=== PATIENT | female | born 1930 | race Caucasian/White ===

== ENCOUNTER 2016-07-25 21:20 | Inpatient (IN) | payer MEDICARE ==
[~2016-07-25] VITALS: Ht 167.6 cm; Wt 82.8 kg
[~2016-07-25 21:20] MED LIST: HYDR-2666 PO
--- NOTE | 2016-07-25 21:59 | PHYS DOC ---
Past Medical History Past Medical History: Hypertension, Hypothyroid, Other Additional Past Medical Histor: graves Past Surgical History: Cholecystectomy, Tonsillectomy, Tubal ligation Additional Past Surgical Histo: vein strip Alcohol Use: None Drug Use: None Adult General Chief Complaint Chief Complaint: MECHANICAL FALL HPI HPI 85-year-old female who states she was sleeping at home when her daughter called and try to get to the phone and slipped and fell hitting her head and landing on her left side in the left shoulder she states she has significant pain in her left shoulder as well as her left hip and pelvis area. Patient has not tried to ambulate since her fall. She is fully alert and oriented this time but has not taken her evening blood pressure medications. She is satting in the mid 80s upon EMS arrival and required 2 L of oxygen. Upon my initial assessment, the patient is in no acute distress but requiring 3 L. She is normally not requiring supplemental oxygen. She states she has history of hypertension but is otherwise healthy. She does not normally require any ambulatory assistance. She does not use a walker or wheelchair. Denies any significant chest pain. She localizes all her pain primarily to the left shoulder made worse with movement. Review of Systems Review of Systems Constitutional: Denies fever or chills [] Eyes: Denies change in visual acuity, redness, or eye pain [] HENT: Denies nasal congestion or sore throat [] Respiratory: Denies cough or shortness of breath [] Cardiovascular: No additional information not addressed in HPI [] GI: Denies abdominal pain, nausea, vomiting, bloody stools or diarrhea [] : Denies dysuria or hematuria [] Musculoskeletal: Denies back pain, has joint pain [] Integument: Denies rash or skin lesions [] Neurologic: Denies headache, focal weakness or sensory changes [] Endocrine: Denies polyuria or polydipsia [] Current Medications Current Medications Current Medications Medications (Trade) Dose Ordered Sig/Valerie Start Time Stop Time Status Last Admin Dose Admin Acetaminophen (Tylenol) 650 mg 1X ONCE 07/25/16 22:00 07/25/16 22:01 DC 07/25/16 22:07 650 MG Allergies Allergies Allergies Coded Allergies Type Severity Reaction Last Updated Verified Penicillins Allergy Intermediate 12/24/15 Yes ibuprofen Allergy Intermediate 12/24/15 Yes Physical Exam Physical Exam Constitutional: Well developed, well nourished, no acute distress, non-toxic appearance. [] HENT: Normocephalic, atraumatic, bilateral external ears normal, oropharynx moist, no oral exudates, nose normal. [] Eyes: PERRLA, EOMI, conjunctiva normal, no discharge. [] Neck: Normal range of motion, no tenderness, supple, no stridor. [] Cardiovascular:Heart rate regular rhythm, no murmur [] Lungs & Thorax: Bilateral breath sounds clear to auscultation, there is no crepitus or deformity of the chest [] Abdomen: Bowel sounds normal, soft, no tenderness, no masses, no pulsatile masses. [] Skin: Warm, dry, no erythema, no rash. [] Back: No tenderness, no CVA tenderness. [] Extremities: There is no obvious deformity or swelling seen in the lower extremities, no cyanosis, no clubbing, ROM intact in left shoulder, no edema. [ ] Neurologic: Alert and oriented X 3, normal motor function, normal sensory function, no focal deficits noted. [] Psychologic: Affect normal, judgement normal, mood normal. [] Current Patient Data Vital Signs Vital Signs Date Time Temp Pulse Resp B/P Pulse Ox O2 Delivery O2 Flow Rate FiO2 07/25/16 23:00 66 156/70 94 Nasal Cannula 2 07/25/16 21:31 97.4 18 97.4 Lab Values Laboratory Tests Test 07/25/16 22:20 07/25/16 22:22 Urine Collection Type Unknown Urine Color Yellow Urine Clarity Clear Urine pH 7.5 Urine Specific [place] 1.015 Urine Protein Negativemg/dL (NEG-TRACE) Urine Glucose (UA) Negativemg/dL (NEG) Urine Ketones (Stick) Negativemg/dL (NEG) Urine Blood Negative (NEG) Urine Nitrite Negative (NEG) Urine Bilirubin Negative (NEG) Urine Urobilinogen Dipstick 0.2mg/dL (0.2 mg/dL) Urine Leukocyte Esterase Small (NEG) Urine RBC 0/HPF (0-2) Urine WBC 5-10/HPF (0-4) Urine Squamous Epithelial Cells Few/LPF Urine Renal Epithelial Cells Occ/LPF Urine Bacteria Few/HPF (0-FEW) Urine Mucus Mod/LPF White Blood Count 7.6x10^3/uL (4.0-11.0) Red Blood Count 4.55x10^6/uL (3.50-5.40) Hemoglobin 13.3g/dL (12.0-15.5) Hematocrit 39.7% (36.0-47.0) Mean Corpuscular Volume 87fL (79-100) Mean Corpuscular Hemoglobin 29pg (25-35) Mean Corpuscular Hemoglobin Concent 34g/dL (31-37) Red Cell Distribution Width 14.7% (11.5-14.5) H Platelet Count 185x10^3/uL (140-400) Neutrophils (%) (Auto) 67% (31-73) Lymphocytes (%) (Auto) 20% (24-48) L Monocytes (%) (Auto) 11% (0-9) H Eosinophils (%) (Auto) 2% (0-3) Basophils (%) (Auto) 0% (0-3) Neutrophils # (Auto) 5.1x10^3uL (1.8-7.7) Lymphocytes # (Auto) 1.5x10^3/uL (1.0-4.8) Monocytes # (Auto) 0.8x10^3/uL (0.0-1.1) Eosinophils # (Auto) 0.2x10^3/uL (0.0-0.7) Basophils # (Auto) 0.0x10^3/uL (0.0-0.2) Sodium Level 142mmol/L (136-145) Potassium Level 4.1mmol/L (3.5-5.1) Chloride Level 105mmol/L (98-107) Carbon Dioxide Level 27mmol/L (21-32) Anion Gap 10 (6-14) Blood Urea Nitrogen 25mg/dL (7-20) H Creatinine 1.0mg/dL (0.6-1.0) Estimated GFR (Cockcroft-Gault) 52.4 Glucose Level 122mg/dL (70-99) H Calcium Level 8.8mg/dL (8.5-10.1) Troponin I Quantitative < 0.017ng/mL (0.000-0.055) Laboratory Tests 07/25/16 22:22 Laboratory Tests 07/25/16 22:22 EKG EKG EKG as interpreted by me shows a sinus rhythm with a rate of 68 bpm. There are no obvious ischemic findings. There is LVH criteria. This EKG does not meet STEMI criteria. Radiology/Procedures Radiology/Procedures CT of the head without contrast demonstrates the following: PROCEDURE CT head without contrast. HISTORY Fall. Headache. TECHNIQUE Noncontrast CT head was obtained. One or more of the following individualized dose reduction techniques were utilized for this exam: 1. Automated exposure control. 2. Adjustment of the mA and/or kV according to patient's size. 3. Use of iterative reconstruction technique. COMPARISON December 24, 2015. FINDINGS There is prominence of the ventricles and sulci. There is mild probable small-vessel ischemic disease. There is no acute intracranial hemorrhage or extra-axial fluid collection. There is no mass effect or midline shift. Mena-white differentiation is preserved. Vascular calcifications are noted. Opacified right maxillary sinus with expansion again may be related to mucocele. Chronic left maxillary sinusitis is noted. Right ethmoid air cells are opacified. IMPRESSION No acute intracranial findings. Stable examination. Portable AP view of the left hip and pelvis appears stable with no obvious fracture or bony abnormality. It shows chronic degenerative change. Portable AP view of the chest as reviewed by me showed a possible left distal clavicular fracture but no other obvious finding with chronic changes to both lung felix but no pneumothorax or any obvious rib fracture. Left shoulder films did not demonstrate any acute bony abnormality other than a possible left distal clavicular fracture. Course & Med Decision Making Course & Med Decision Making Pertinent Labs and Imaging studies reviewed. (See chart for details) This fairly robust 85-year-old female who had a fall that she attributes to trying to get to the phone swiftly and falling onto tile surface will have a head CT as well as a portable view of her chest, left shoulder and left hip and pelvis to rule out any acute fracture. She is still requiring supplemental oxygen at this time and will likely need to be admitted for this reason. She likely has a pulmonary contusion or rib fracture. Her laboratory workup was essentially unremarkable. She has continuing acquired submental oxygen which is likely secondary to her underlying lung disease as well as possible chest wall contusion and for this reason I'll be admitting her for further evaluation and treatment. Her pain was well-controlled with Tylenol only on the department. Need for her admission will be discussed with the hospitalist, Dr. Farmer, who will evaluate further for her hypoxia. Dragon Disclaimer Dragon Disclaimer This electronic medical record was generated, in whole or in part, using a voice recognition dictation system. Departure Departure Impression: Primary Impression: Injury of clavicle Additional Impressions: Hypoxia Fall Disposition: 09 ADMITTED INPATIENT Admitting Physician: Kenia Farmer Condition: STABLE Referrals: UNKNOWN PCP NAME (PCP) Problem Qualifiers JENNY DELGADO DO Jul 25, 2016 21:59
[2016-07-25] MEDS ORDERED: ACETAMINOPHEN 325 MG TABLET. PO ONE (22:00)
[2016-07-25 22:33] LABS: BILIRUBIN,URINE NEGATIVE (NEG); GLUCOSE,URINE NEGATIVE (NEG); NITRITE,URINE NEGATIVE (NEG); PH,URINE 7.5; PROTEIN,URINE NEGATIVE (NEG-TRACE); UROBILINOGEN,URINE 0.2 mg/dL (0.2 mg/dL)
[2016-07-25 22:34] LABS: BASO % 0 % (0-3); EOS % 2 % (0-3); HEMATOCRIT 39.7 % (36.0-47.0); HEMOGLOBIN 13.3 g/dL (12.0-15.5); LYMPH # 1.5 x10^3/uL (1.0-4.8); LYMPH % 20 % (24-48); MEAN CORPUSCULAR HEMOGLOBIN 29 pg (25-35); MEAN CORPUSCULAR HGB CONC 34 g/dL (31-37); MEAN CORPUSCULAR VOLUME 87 fL (79-100); MONO % 11 % (0-9); NEUT % 67 % (31-73); PLATELET COUNT 185 x10^3/uL (140-400); RED BLOOD COUNT 4.55 x10^6/uL (3.50-5.40); RED CELL DISTRIBUTION WIDTH 14.7 % (11.5-14.5); WHITE BLOOD COUNT 7.6 x10^3/uL (4.0-11.0)
[2016-07-25 22:42] LABS: BACTERIA,URINE FEW /HPF (0-FEW); RBC,URINE 0 /HPF (0-2); SQUAMOUS EPITHELIAL CELL,UR FEW /LPF
[2016-07-25 22:48] LABS: CALCIUM 8.8 mg/dL (8.5-10.1); GFR 52.4; POTASSIUM 4.1 mmol/L (3.5-5.1)
[2016-07-25] MEDS ORDERED: METOPROLOL TART IMMED RELEASE 25 MG TABLET PO ONE (23:30)
[2016-07-25] MEDS ORDERED: ONDANSETRON PF 4 MG/2 ML VIAL. IV PRN (23:30)
--- NOTE | 2016-07-25 23:42 | RAD ---
PROCEDURE CT head without contrast. HISTORY Fall. Headache. TECHNIQUE Noncontrast CT head was obtained. One or more of the following individualized dose reduction techniques were utilized for this exam: 1. Automated exposure control. 2. Adjustment of the mA and/or kV according to patient's size. 3. Use of iterative reconstruction technique. COMPARISON December 24, 2015. FINDINGS There is prominence of the ventricles and sulci. There is mild probable small-vessel ischemic disease. There is no acute intracranial hemorrhage or extra-axial fluid collection. There is no mass effect or midline shift. Mena-white differentiation is preserved. Vascular calcifications are noted. Opacified right maxillary sinus with expansion again may be related to mucocele. Chronic left maxillary sinusitis is noted. Right ethmoid air cells are opacified. IMPRESSION No acute intracranial findings. Stable examination. Electronically signed by: Fish Wilkinson MD (Jul 25, 2016 23:41:36)
--- NOTE | 2016-07-26 01:17 | EKG ---
[facility] [address] [place] [address] Test Date: 2016-07-25 Test Time: 22:00:36 Pat Name: JOSSUE WILLOUGHBY Department: Room: 506 Gender: F Hog Scalder: : 1930 Requested By: JENNY DELGADO Order Number: [id number] Reading MD: Russel Paulino Measurements Intervals [place] Rate: 68 P: 69 RI: 212 QRS: 40 QRSD: 84 T: 81 QT: 396 QTc: 426 Interpretive Statements SINUS RHYTHM LVH WITH REPOLARIZATION ABNORMALITY QRS(T) CONTOUR ABNORMALITY CONSIDER ANTEROLATERAL MYOCARDIAL DAMAGE ABNORMAL ECG Electronically Signed On 08-04-2016 16:35:33 CDT by Russel Paulino
[2016-07-26] MEDS ORDERED: METO-269 PO (02:19)
[2016-07-26] MEDS ORDERED: LEVO125T5 PO (02:19)
[2016-07-26] MEDS ORDERED: LOSA50TA6 PO (02:19)
[2016-07-26] MEDS ORDERED: AMLO5TAB4 PO (02:19)
[2016-07-26 02:32] VITALS: BP 156/82
[2016-07-26] MEDS ORDERED: PNEUMOCOCCAL VAX SCREEN BY RX. MC ONE (03:00)
--- NOTE | 2016-07-26 03:02 | ACF ---
Admission Forms Criteria MUSCULOSKELETAL DISEASE GRG Clinical Indications for Admission to Inpatient Care (Place 'X' for any and all applicable criteria): Hospital admission is needed for appropriate care of the patient because of ANY ONE of the following: [X]I. Fracture, dislocation, or other musculoskeletal injury requiring inpatient care(medical) as indicated by ANY ONE of the following(4)(5)(6)(7) [ ]a) Vertebral fracture requiring observation for instability or neurologic compromise (8) [ ]b) Compartment syndrome (proven or cannot be ruled out during observation level of care) (9) [ ]c) Limb-threatening injury [ ]d) Major injury requiring inpatient stabilization such as traction initiation or external fixation before internal fixation or closure of complex or open fracture [X]e) Major injury requiring inpatient treatment after emergency or observation level care (as appropriate) [ ]f) Severe pain requiring acute inpatient management [ ]II. Newly diagnosed or suspected bone, joint, or orthopedic device infection (e.g., osteomyelitis, septic arthritis) needing ANY ONE of the following(1)(2)(3) [ ]a) IV antibiotics that cannot be initiated in other than inpatient setting (e.g., patient too unstable or home infusion not available) [ ]b) Device removal or replacement [ ]c) Bone or soft tissue debridement [ ]d) Joint drainage (drain placement or repetitive aspirations) [ ]III. Severe rheumatologic disease (e.g., systemic lupus erythematosus, rheumatoid arthritis) with complications or comorbidities (Also use Optimal Recovery Care Criteria or General Recovery Criteria as appropriate on the basis of predominant condition), including ANY ONE of the following(10 )(11)(12)(13) [ ]a) Severe infection (e.g., BU[place]ARO infection, sepsis) (14) [ ]b) Respiratory complications, including ANY ONE of the following: [ ]i) Pleural effusion with respiratory compromise [ ]ii) Pulmonary hypertension with congestive failure [ ]iii) Respiratory failure [ ]iv) Pulmonary hemorrhage (15) [ ]c) Hematologic disease, including ANY ONE of the following: [ ]i) Coagulopathy with bleeding [ ]ii) Thrombosis with hypercoagulable state [ ]iii) Thrombotic thrombocytopenic purpura [ ]d) Cerebritis with seizures, psychosis, or other severe abnormalities [ ]e) Vertebral destruction with monitoring needed for cervical myelopathy& possible respiratory compromise [ ]f) Exacerbation that requires inpatient treatment (e.g., intravenous immunosuppression) (16) [ ]g) Acute renal failure [ ]IV. Severe vasculitis with complications or comorbidities (Also use Optimal Recovery Care Criteria or General Recovery Criteria as appropriate on the basis of predominant condition), including ANY ONE of the following(11)(12)(17)(18)(19)(20) [ ]a) BU[place]O vasculitis with seizures, psychosis, or other severe abnormalities (22) [ ]b) Renal failure (16) [ ]c) Pulmonary hemorrhage (15) [ ]d) Cerebral infarction [ ]e) Gastrointestinal ischemia [ ]f) Gangrene or threatened amputation [ ]g) Exacerbation that requires inpatient treatment (e.g., intravenous immunosuppression) (19)(21) [ ]V. Severe myopathy as indicated by ANY ONE of the following (28)(29) [ ]a) New onset of airway compromise or inability to swallow [ ]b) Respiratory deterioration with observation needed for impending respiratory failure [ ]c) Exacerbation that requires inpatient treatment (e.g., intravenous immunosuppression) [ ]. Severe gout (crystal arthropathy) as indicated by ANY ONE of the following (23)(24) [ ]a) Severe pain requiring acute inpatient management [ ]b) Exacerbation that requires inpatient treatment (e.g., intravenous treatment) [ ]VII.Rhabdomyolysis and ANY ONE of the following (25)(26)(27) [ ]a) Acute renal failure [ ]b) Need for intravenous hydration after emergency or observation level care (as appropriate) [ ]c) Inability to maintain oral hydration [ ]d) Change in mental status [ ]e) Electrolyte abnormality that remains after emergency or observation level care (as appropriate) [ ]VIII Post amputation complication, as indicated by ANY ONE of the following [ ]a) Infection [ ]b) Dehiscence [ ]c) Myodesis failure [ ]IX. Severe pain requiring acute inpatient management as indicated by ALL of the following (30)(31)(32) [ ]a) Continuous or frequent (e.g., every 2 to 4 hrs) parenteral analgesics required [A] [ ]b) Rapid improvement expected from treatment or acute intervention ( e.g., surgery, anesthesia procedure[B] [ ]X. Musculoskeletal Disease and ALL of the following: [ ]a) Symptom or finding for which emergency and observation care have failed or are not considered appropriate (Use General Criteria: Observation Care as appropriate) [ ]b) Presence of ANY ONE of the following [ ]i) A General Admission Criteria [ ]ii) A Pediatric General Admission Criteria The original [facility] content created by [facility] has been revised. The portions of the content which have been revised are identified through the use of italic text or in bold, and [facility] has neither reviewed nor approved the modified material. All other unmodified content is copyright [facility]. Please see references footnoted in the original [facility] edition 2016 Admission Criteria Met?: Yes KISHORE ALVARENGA Jul 26, 2016 03:02
[2016-07-26] MEDS: TRAMADOL 50 MG TABLET. PO PRN ×3 (03:38→18:09)
[2016-07-26 07:00] VITALS: BP 158/63
--- NOTE | 2016-07-26 08:01 | RAD ---
Indication fall, pain. An AP view of the pelvis was obtained as well as targeted AP and frog leg views of the left hip. There is suspect bony demineralization. There is a mildly impacted, traumatic, fracture of the left humeral neck IMPRESSION: Fractured left humeral neck
--- NOTE | 2016-07-26 08:04 | RAD ---
Indication fall, pain. An AP view and 2Y views of the left shoulder were obtained. There is probable bony demineralization. There is a subtle linear lucency involving the distal clavicle suggesting a possible nondisplaced fracture. The finding is not certain and could be artifactual. Clinical correlation as to the possibility of a traumatic nondisplaced fracture involving the distal clavicle advised IMPRESSION: Suspect nondisplaced fracture distal clavicle
--- NOTE | 2016-07-26 08:06 | RAD ---
Indication fall, pain. Single view of the chest was obtained. Comparison is made to an examination 03/11/2005. There is mild unchanged cardiomegaly. There are probable background changes of fibrosis. A consolidated pneumonia is not seen. An acute finding in the chest is not apparent. IMPRESSION: No acute finding
[2016-07-26] MEDS ORDERED: PNEUMOC CONJ VACC 23-VALENT 0.5 ML VIAL. VAX IM ONE (09:00)
[2016-07-26] MEDS ORDERED: DEXTROSE 50% 25 GM / 50ML DISP.SYRIN. IV PRN (10:00)
[2016-07-26] MEDS: AMLODIPINE BESYLATE 5 MG TABLET PO SCH (10:24)
[2016-07-26] MEDS: LEVOTHYROXINE 125 MCG TABLET PO SCH (10:25)
[2016-07-26] MEDS: IV 1/2 NORMAL SALINE 1,000 ML IV SCH ×2 (10:46→21:04)
[2016-07-26 11:00] VITALS: BP 150/56
[2016-07-26] MEDS: INSULIN ASPART 300 UNITS/3 ML INSULN.PEN SQ SCH ×2 (12:00→17:00)
--- NOTE | 2016-07-26 14:42 | PDOC1 ---
History and Physical Date of Admission Date of Admission DATE: 07/26/16 TIME: 14:32 Identification/Chief Complaint Chief Complaint mechanical fall Source Source: Caregiver, Chart review, Patient History of Present Illness History of Present Illness very pleasant and fully functional 85 y.o, lives at home alone, ambulates without assistive device had a mechanical fall last night, SHe was talking on the phone, was on her doorway which was tiled and fell on her left side hitting her left clavicle and left hip,. NO head trauma, no LOC, At ER. images did show left femoral neck fx, and left distal clavicular fx, Dry mouth, has been NPO since admission, but with IVF running at 75cc.hr No known heart or lung probs. NOn smoker, non drinker, Rather very healthy for stated age, FAmily involved in her care Past Medical History Cardiovascular: HTN Endocrine: Hypothyroidism Past Surgical History Past Surgical History: Other, No pertinent history Family History Family History: No Significant Social History Smoke: No ALCOHOL: none Current Problem List Problem List Problems Medical Problems: (1) Fall Status: Acute (2) Hypoxia Status: Acute (3) Injury of clavicle Status: Acute Problems: Current Medications Current Medications Current Medications Acetaminophen (Tylenol) 650 mg 1X ONCE PO Last administered on 07/25/16 22:07 ; Start 07/25/16 at 22:00; Stop 07/25/16 at 22:01; Status DC Metoprolol Tartrate (Lopressor) 50 mg 1X ONCE PO Last administered on t 23:43; Start 07/25/16 at 23:30; Stop 07/25/16 at 23:31; Status DC Ondansetron HCl (Zofran) 4 mg PRN Q8HRS PRN IV NAUSEA/VOMITING; Start 07/25/16 at 23:30; Stop 07/26/16 at 09:50; Status DC Acetaminophen (Tylenol) 650 mg PRN Q4HRS PRN PO FEVER; Start 07/25/16 at 23:30 ; Stop 07/26/16 at 23:29 Pneumococcal Polyvalent Vaccine (Do NOT chart on this placeholder) 1 each 1X ONCE MC ; Start 07/26/16 at 03:00; Stop 07/26/16 at 03:01; Status UNV Pneumococcal Polyvalent Vaccine (Pneumovax 23) 0.5 ml ONCE ONCE VAX IM ; Start 07/26/16 at 09:00; Stop 07/26/16 at 09:01; Status DC Tramadol HCl (Ultram) 50 mg PRN Q6HRS PRN PO PAIN Last administered on 10:26; Start 07/26/16 at 03:30 Ondansetron HCl (Zofran) 4 mg PRN Q6HRS PRN IV NAUSEA/VOMITING 1ST CHOICE; Start 07/26/16 at 09:48 Insulin Aspart (Novolog) 0-9 UNITS TIDWMEALS SQ ; Start 07/26/16 at 12:00 Dextrose 12.5 gm PRN Q15MIN PRN IV SEE COMMENTS; Start 07/26/16 at 10:00 Amlodipine Besylate (Norvasc) 5 mg DAILY PO Last administered on 07/26/16 10: 24; Start 07/26/16 at 10:30 Levothyroxine Sodium (Synthroid) 125 mcg DAILY07 PO Last administered on 10:25; Start 07/26/16 at 10:30 Losartan Potassium (Cozaar) 50 mg HS PO ; Start 07/26/16 at 21:00 Metoprolol Succinate 50 mg 50 mg HS PO ; Start 07/26/16 at 21:00 Sodium Chloride (Iv Sodium Chloride 0.45%) 1,000 ml @ 75 mls/hr [id number] IV Last administered on 07/26/16 10:46; Start 07/26/16 at 10:00 Active Scripts Active Reported Toprol Xl (Metoprolol Succinate) 50 Mg Tab.er.24h 1 Tab PO HS Losartan Potassium 50 Mg Tablet 50 Mg PO HS Norvasc (Amlodipine Besylate) 5 Mg Tablet 1 Tab PO DAILY Levothyroxine Sodium 125 Mcg Tablet 1 Tab PO DAILY Allergies Allergies: Coded Allergies: Penicillins (Verified Allergy, Intermediate, 12/24/15) ibuprofen (Verified Allergy, Intermediate, 12/24/15) banana (Verified Allergy, Unknown, 07/26/16) honey (Verified Allergy, Unknown, 07/26/16) ROS General: No: Appetite, Chills, Fatigue, Malaise, Night Sweats, Other PSYCHOLOGICAL ROS: No: Anxiety, Behavioral Disorder, Concentration difficultie , Decreased libido, Depression, Disorientation, Hallucinations, Hostility, Irritablity, Memory difficulties, Mood Swings, Obsessive thoughts, Other, Physical abuse, Sexual abuse, Sleep disturbances, Suicidal ideation Eyes: No Blurry vision, No Decreased vision, No Double vision, No Dry eyes, No Excessive tearing, No Eye Pain, No Itchy Eyes, No Loss of vision, No Other, No Photophobia, No Scotomata, No Uses contacts, No Uses glasses HEENT: No: Epistaxis, Heacaches, Hearing change, Nasal congestion, Nasal discharge, Oral lesions, Other, Sinus pain, Sneezing, Snoring, Sore Throat, Tinnitus, Vertigo, Visual Changes, Vocal changes ALLERGY AND IMMUNOLOGY: No: Hives, Insect Bite Sensitivity, Itchy/Watery Eyes, Nasal Congestion, Other, Post Nasal Drip, Seasonal Allergies Hematological and Lymphatic: No: Bleeding Problems, Blood Clots, Blood Transfusions, Brusing, Night Sweats, Other, Pallor, Swollen Lymph Nodes ENDOCRINE: No: Breast Changes, Galactorrhea, Hair Pattern Changes, Hot Flashes , Malaise/lethargy, Mood Swings, Other, Palpitations, Polydipsia/polyuria, Skin Changes, Temperature Intolerance, Unexpected Weight Changes Breast: No New/Changing Breast Lumps, No Nipple changes, No Nipple discharge, No Other Respiratory: No: Cough, Hemoptysis, Orthopnea, Other, Pleuritic Pain, SOB with excertion, Shortness of breath, Sputum Changes, Stridor, Tachypnea, Wheezing Cardiovascular: No Chest Pain, No Edema, No Lt Headedness, No Orthopnea, No Other, No Palpitations, No Paroxysmal Noc. Dyspnea Gastrointestinal: No Abdominal Pain, No Constipation, No Diarrhea, No Hematochezia, No Melena, No Nausea, No Other, No Vomiting Genitourinary: No , No , No , No , No , No , No , No Discharge, No Dysuria, No Flank Pain, No Frequency, No Hematuria, No Incontinence, No Other, No Pain, No Retention, No Urgency Musculoskeletal: No Gait Disturbance, No Joint Pain, No Joint Stiffness, No Joint Swelling, No Muscle Pain, No Muscular Weakness, No Other, No Pain In:, No Swelling In: Neurological: No Behavorial Changes, No Bowel/Bladder ControlChng, No Confusion , No Dizziness, No Gait Disturbance, No Headaches, No Impaired Coord/balance, No Memory Loss, No Numbness/Tingling, No Other, No Seizures, No Speech Problems , No Tremors, No Visual Changes, No Weakness Skin: No Acne, No Dry Skin, No Eczema, No Hair Changes, No Lumps, No Mole Changes, No Mottling, No Nail Changes, No Other, No Pruritus, No Rash, No Skin Lesion Changes Physical Exam General: Alert, Oriented X3, Cooperative, No acute distress HEENT: Atraumatic, PERRLA, EOMI Lungs: Clear to auscultation, Normal air movement Heart: S1S2, RRR, no thrills, no rubs, no gallops Cardiovascular: S1, S2 Breasts: Normal, Rt breast nml w/o mass, Lt breast nml w/o mass, Nipples normal Abdomen: Normal bowel sounds, Soft, No tenderness, No hepatosplenomegaly, No masses Extremities: Other (left leg is externally rotated) Skin: No rashes, No breakdown, No significant lesion Neuro: Normal gait, Normal speech, Strength at 5/5 X4 ext, Normal tone, Sensation intact, Cranial nerves 3-12 NL, Reflexes 2+ Psych/Mental Status: Mental status NL, Mood NL Vitals Vitals Vital Signs Date Time Temp Pulse Resp B/P Pulse Ox O2 Delivery O2 Flow Rate FiO2 07/26/16 11:26 20 94 Nasal Cannula 2.0 07/26/16 11:00 99.1 67 150/56 99.1 Labs Labs Laboratory Tests Test 07/25/16 22:20 07/25/16 22:22 07/26/16 11:51 Urine Collection Type Unknown Urine Color Yellow Urine Clarity Clear Urine pH 7.5 Urine Specific [place] 1.015 Urine Protein Negativemg/dL (NEG-TRACE) Urine Glucose (UA) Negativemg/dL (NEG) Urine Ketones (Stick) Negativemg/dL (NEG) Urine Blood Negative (NEG) Urine Nitrite Negative (NEG) Urine Bilirubin Negative (NEG) Urine Urobilinogen Dipstick 0.2mg/dL (0.2 mg/dL) Urine Leukocyte Esterase Small (NEG) Urine RBC 0/HPF (0-2) Urine WBC 5-10/HPF (0-4) Urine Squamous Epithelial Cells Few/LPF Urine Renal Epithelial Cells Occ/LPF Urine Bacteria Few/HPF (0-FEW) Urine Mucus Mod/LPF White Blood Count 7.6x10^3/uL (4.0-11.0) Red Blood Count 4.55x10^6/uL (3.50-5.40) Hemoglobin 13.3g/dL (12.0-15.5) Hematocrit 39.7% (36.0-47.0) Mean Corpuscular Volume 87fL (79-100) Mean Corpuscular Hemoglobin 29pg (25-35) Mean Corpuscular Hemoglobin Concent 34g/dL (31-37) Red Cell Distribution Width 14.7% (11.5-14.5) Platelet Count 185x10^3/uL (140-400) Neutrophils (%) (Auto) 67% (31-73) Lymphocytes (%) (Auto) 20% (24-48) Monocytes (%) (Auto) 11% (0-9) Eosinophils (%) (Auto) 2% (0-3) Basophils (%) (Auto) 0% (0-3) Neutrophils # (Auto) 5.1x10^3uL (1.8-7.7) Lymphocytes # (Auto) 1.5x10^3/uL (1.0-4.8) Monocytes # (Auto) 0.8x10^3/uL (0.0-1.1) Eosinophils # (Auto) 0.2x10^3/uL (0.0-0.7) Basophils # (Auto) 0.0x10^3/uL (0.0-0.2) Sodium Level 142mmol/L (136-145) Potassium Level 4.1mmol/L (3.5-5.1) Chloride Level 105mmol/L (98-107) Carbon Dioxide Level 27mmol/L (21-32) Anion Gap 10 (6-14) Blood Urea Nitrogen 25mg/dL (7-20) Creatinine 1.0mg/dL (0.6-1.0) Estimated GFR (Cockcroft-Gault) 52.4 Glucose Level 122mg/dL (70-99) Calcium Level 8.8mg/dL (8.5-10.1) Troponin I Quantitative < 0.017ng/mL (0.000-0.055) Glucose (Fingerstick) 125mg/dL (70-99) Laboratory Tests Test 07/25/16 22:20 07/25/16 22:22 07/26/16 11:51 Urine Collection Type Unknown Urine Color Yellow Urine Clarity Clear Urine pH 7.5 Urine Specific [place] 1.015 Urine Protein Negativemg/dL (NEG-TRACE) Urine Glucose (UA) Negativemg/dL (NEG) Urine Ketones (Stick) Negativemg/dL (NEG) Urine Blood Negative (NEG) Urine Nitrite Negative (NEG) Urine Bilirubin Negative (NEG) Urine Urobilinogen Dipstick 0.2mg/dL (0.2 mg/dL) Urine Leukocyte Esterase Small (NEG) Urine RBC 0/HPF (0-2) Urine WBC 5-10/HPF (0-4) Urine Squamous Epithelial Cells Few/LPF Urine Renal Epithelial Cells Occ/LPF Urine Bacteria Few/HPF (0-FEW) Urine Mucus Mod/LPF White Blood Count 7.6x10^3/uL (4.0-11.0) Red Blood Count 4.55x10^6/uL (3.50-5.40) Hemoglobin 13.3g/dL (12.0-15.5) Hematocrit 39.7% (36.0-47.0) Mean Corpuscular Volume 87fL (79-100) Mean Corpuscular Hemoglobin 29pg (25-35) Mean Corpuscular Hemoglobin Concent 34g/dL (31-37) Red Cell Distribution Width 14.7% (11.5-14.5) Platelet Count 185x10^3/uL (140-400) Neutrophils (%) (Auto) 67% (31-73) Lymphocytes (%) (Auto) 20% (24-48) Monocytes (%) (Auto) 11% (0-9) Eosinophils (%) (Auto) 2% (0-3) Basophils (%) (Auto) 0% (0-3) Neutrophils # (Auto) 5.1x10^3uL (1.8-7.7) Lymphocytes # (Auto) 1.5x10^3/uL (1.0-4.8) Monocytes # (Auto) 0.8x10^3/uL (0.0-1.1) Eosinophils # (Auto) 0.2x10^3/uL (0.0-0.7) Basophils # (Auto) 0.0x10^3/uL (0.0-0.2) Sodium Level 142mmol/L (136-145) Potassium Level 4.1mmol/L (3.5-5.1) Chloride Level 105mmol/L (98-107) Carbon Dioxide Level 27mmol/L (21-32) Anion Gap 10 (6-14) Blood Urea Nitrogen 25mg/dL (7-20) Creatinine 1.0mg/dL (0.6-1.0) Estimated GFR (Cockcroft-Gault) 52.4 Glucose Level 122mg/dL (70-99) Calcium Level 8.8mg/dL (8.5-10.1) Troponin I Quantitative < 0.017ng/mL (0.000-0.055) Glucose (Fingerstick) 125mg/dL (70-99) VTE Prophylaxis Ordered VTE Prophylaxis Devices: Yes VTE Pharmacological Prophylaxi: Yes Assessment/Plan Assessment/Plan 1. Left fem neck fx, closed 2. Left distal clavicular fx, closed 3. MEchanical fall 4. HTN, controlled 5. Hypothyroidism on synthroid PLAN Liquid diet today, NPO post MN Await ortho consult Check vit D levels MAy inc iVF to 100cc.hr Resume antihypertensives and synthroid Dw pt and family and RN Dw RAdiologist - misread - it is femoral neck fx not humeral fx JEFFREY CAUSEY MD Jul 26, 2016 14:42
[2016-07-26] MEDS ORDERED: CALCIUM CARBONATE 500 MG TAB.CHEW PO PRN (14:45)
[2016-07-26 15:36] VITALS: BP 143/59
[2016-07-26] MEDS ORDERED: CEFAZOLIN 1GM IVPB FOR OMNI 50 ML IV ONE (17:00)
[2016-07-26] MEDS: ACETAMINOPHEN 325 MG TABLET. PO PRN ×2 (17:02→21:11)
--- NOTE | 2016-07-26 17:03 | PDOC2 ---
CONSULT Date of Consult Date of Consult DATE: 07/26/16 TIME: 16:42 Reason for Consult Reason for Consult: Left hip fracture and left shoulder fracture. I was initially consult yesterday for impacted humeral neck fracture. Identification/Chief Complaint Chief Complaint Left hip and shoulder pain Source Source: Chart review, Patient History of Present Illness Reason for Visit: This 85-year-old woman fell at home yesterday. She was talking on the phone, and slipped on the tile floor in the doorway. She had immediate hip and shoulder pain and was unable to get up or ambulate. She was brought to the hospital by EMS. She has been at bed rest since yesterday, and is unable to move the leg at all. She still has shoulder pain. She did hit her head but did not have loss of consciousness, and the CT scan was negative for acute intracranial findings. She normally lives alone at home. Her was a physician, and he about a year and a half ago. I believe her son is Kane Fay the nurse on 4 . She still is able to drive although she says she doesn't like driving "[place]town". She does have a history of poor bone quality. She had an x-ray 25 years ago that noted demineralized bone. She had hand surgery a few years ago and was told by the surgeon her bone quality was surprisingly bad. Past Medical History Past Medical History Chronic sinus problems. Osteopenia/osteoporosis by her history. Cardiovascular: HTN Endocrine: Hypothyroidism Past Surgical History Past Surgical History: Other, No pertinent history Family History Family History: No Significant Social History Social History She lives alone but has quite a few family members who help. She has another son who is an emergency room physician. No ALCOHOL: none Lives: Alone Current Problem List Problem List Problems Medical Problems: (1) Fall Status: Acute (2) Hypoxia Status: Acute (3) Injury of clavicle Status: Acute Current Medications Current Medications Current Medications Acetaminophen (Tylenol) 650 mg 1X ONCE PO Last administered on 07/25/16 22:07 ; Start 07/25/16 at 22:00; Stop 07/25/16 at 22:01; Status DC Metoprolol Tartrate (Lopressor) 50 mg 1X ONCE PO Last administered on 23:43; Start 07/25/16 at 23:30; Stop 07/25/16 at 23:31; Status DC Ondansetron HCl (Zofran) 4 mg PRN Q8HRS PRN IV NAUSEA/VOMITING; Start 07/25/16 at 23:30; Stop 07/26/16 at 09:50; Status DC Acetaminophen (Tylenol) 650 mg PRN Q4HRS PRN PO FEVER; Start 07/25/16 at 23:30 ; Stop 07/26/16 at 23:29 Pneumococcal Polyvalent Vaccine (Do NOT chart on this placeholder) 1 each 1X ONCE MC ; Start 07/26/16 at 03:00; Stop 07/26/16 at 03:01; Status UNV Pneumococcal Polyvalent Vaccine (Pneumovax 23) 0.5 ml ONCE ONCE VAX IM ; Start 07/26/16 at 09:00; Stop 07/26/16 at 09:01; Status DC Tramadol HCl (Ultram) 50 mg PRN Q6HRS PRN PO PAIN Last administered on 10:26; Start 07/26/16 at 03:30 Ondansetron HCl (Zofran) 4 mg PRN Q6HRS PRN IV NAUSEA/VOMITING 1ST CHOICE; Start 07/26/16 at 09:48 Insulin Aspart (Novolog) 0-9 UNITS TIDWMEALS SQ ; Start 07/26/16 at 12:00 Dextrose 12.5 gm PRN Q15MIN PRN IV SEE COMMENTS; Start 07/26/16 at 10:00 Amlodipine Besylate (Norvasc) 5 mg DAILY PO Last administered on 07/26/16 10: 24; Start 07/26/16 at 10:30 Levothyroxine Sodium (Synthroid) 125 mcg DAILY07 PO Last administered on 10:25; Start 07/26/16 at 10:30 Losartan Potassium (Cozaar) 50 mg HS PO ; Start 07/26/16 at 21:00 Metoprolol Succinate 50 mg 50 mg HS PO ; Start 07/26/16 at 21:00 Sodium Chloride (Iv Sodium Chloride 0.45%) 1,000 ml @ 100 mls/hr Q10H IV Last administered on 07/26/16 10:46; Start 07/26/16 at 10:00 Pantoprazole Sodium (Protonix Vial) 40 mg DAILYAC IVP ; Start 07/27/16 at 07:30 Calcium Carbonate/ Glycine (Tums) 500 mg PRN AFTMEALHC PRN PO INDIGESTION Last administered on 07/26/16t 15:07; Start 07/26/16 at 14:45 Active Scripts Active Reported Toprol Xl (Metoprolol Succinate) 50 Mg Tab.er.24h 1 Tab PO HS Losartan Potassium 50 Mg Tablet 50 Mg PO HS Norvasc (Amlodipine Besylate) 5 Mg Tablet 1 Tab PO DAILY Levothyroxine Sodium 125 Mcg Tablet 1 Tab PO DAILY Allergies Allergies: Coded Allergies: Penicillins (Verified Allergy, Intermediate, 12/24/15) ibuprofen (Verified Allergy, Intermediate, 12/24/15) banana (Verified Allergy, Unknown, 07/26/16) honey (Verified Allergy, Unknown, 07/26/16) ROS General: No: Fatigue, Malaise Respiratory: YES: Other (she has been somewhat hypoxic since admission. Possible chest contusion.) Musculoskeletal: Yes Joint Pain (left shoulder pain since the fall) Physical Exam General: Alert, Oriented X3, Cooperative, No acute distress HEENT: Other (trace contusion evidence) Lungs: Normal air movement, Other (she is on 2 L oxygen, and has been somewhat hypoxic 3 admission) Heart: Regular rate Abdomen: Soft Extremities: Other (the left shoulder is pinpoint tender to palpation at the distal clavicle. Shoulder alignment is grossly normal. Skin over the fracture is intact. Passive range of motion of the shoulder causes slight pain at the distal clavicle. Motor strength and sensory function distally are preserved on the left upper extremity.) Skin: No rashes, No breakdown Neuro: Normal speech, Sensation intact MUSCULOSKELETAL: Abnormal exam of left (the left hip is tender to palpation. She had extreme pain with any attempted motion, as if the fracture is very unstable. She is unable to lift the knee off the bed or the leg. Light touch sensation and motor function of the foot are intact. There is slight shortening of the extremity.) Vitals VITALS Vital Signs Date Time Temp Pulse Resp B/P Pulse Ox O2 Delivery O2 Flow Rate FiO2 07/26/16 16:32 100.2 100.2 07/26/16 15:36 67 18 143/59 94 Nasal Cannula 2.0 Labs Labs Laboratory Tests Test 07/25/16 22:20 07/25/16 22:22 07/26/16 11:51 07/26/16 16:37 Urine Collection Type Unknown Urine Color Yellow Urine Clarity Clear Urine pH 7.5 Urine Specific [place] 1.015 Urine Protein Negativemg/dL (NEG-TRACE) Urine Glucose (UA) Negativemg/dL (NEG) Urine Ketones (Stick) Negativemg/dL (NEG) Urine Blood Negative (NEG) Urine Nitrite Negative (NEG) Urine Bilirubin Negative (NEG) Urine Urobilinogen Dipstick 0.2mg/dL (0.2 mg/dL) Urine Leukocyte Esterase Small (NEG) Urine RBC 0/HPF (0-2) Urine WBC 5-10/HPF (0-4) Urine Squamous Epithelial Cells Few/LPF Urine Renal Epithelial Cells Occ/LPF Urine Bacteria Few/HPF (0-FEW) Urine Mucus Mod/LPF White Blood Count 7.6x10^3/uL (4.0-11.0) Red Blood Count 4.55x10^6/uL (3.50-5.40) Hemoglobin 13.3g/dL (12.0-15.5) Hematocrit 39.7% (36.0-47.0) Mean Corpuscular Volume 87fL (79-100) Mean Corpuscular Hemoglobin 29pg (25-35) Mean Corpuscular Hemoglobin Concent 34g/dL (31-37) Red Cell Distribution Width 14.7% (11.5-14.5) Platelet Count 185x10^3/uL (140-400) Neutrophils (%) (Auto) 67% (31-73) Lymphocytes (%) (Auto) 20% (24-48) Monocytes (%) (Auto) 11% (0-9) Eosinophils (%) (Auto) 2% (0-3) Basophils (%) (Auto) 0% (0-3) Neutrophils # (Auto) 5.1x10^3uL (1.8-7.7) Lymphocytes # (Auto) 1.5x10^3/uL (1.0-4.8) Monocytes # (Auto) 0.8x10^3/uL (0.0-1.1) Eosinophils # (Auto) 0.2x10^3/uL (0.0-0.7) Basophils # (Auto) 0.0x10^3/uL (0.0-0.2) Sodium Level 142mmol/L (136-145) Potassium Level 4.1mmol/L (3.5-5.1) Chloride Level 105mmol/L (98-107) Carbon Dioxide Level 27mmol/L (21-32) Anion Gap 10 (6-14) Blood Urea Nitrogen 25mg/dL (7-20) Creatinine 1.0mg/dL (0.6-1.0) Estimated GFR (Cockcroft-Gault) 52.4 Glucose Level 122mg/dL (70-99) Calcium Level 8.8mg/dL (8.5-10.1) Troponin I Quantitative < 0.017ng/mL (0.000-0.055) Glucose (Fingerstick) 125mg/dL (70-99) 157mg/dL (70-99) Laboratory Tests Test 07/25/16 22:20 07/25/16 22:22 07/26/16 11:51 07/26/16 16:37 Urine Collection Type Unknown Urine Color Yellow Urine Clarity Clear Urine pH 7.5 Urine Specific [place] 1.015 Urine Protein Negativemg/dL (NEG-TRACE) Urine Glucose (UA) Negativemg/dL (NEG) Urine Ketones (Stick) Negativemg/dL (NEG) Urine Blood Negative (NEG) Urine Nitrite Negative (NEG) Urine Bilirubin Negative (NEG) Urine Urobilinogen Dipstick 0.2mg/dL (0.2 mg/dL) Urine Leukocyte Esterase Small (NEG) Urine RBC 0/HPF (0-2) Urine WBC 5-10/HPF (0-4) Urine Squamous Epithelial Cells Few/LPF Urine Renal Epithelial Cells Occ/LPF Urine Bacteria Few/HPF (0-FEW) Urine Mucus Mod/LPF White Blood Count 7.6x10^3/uL (4.0-11.0) Red Blood Count 4.55x10^6/uL (3.50-5.40) Hemoglobin 13.3g/dL (12.0-15.5) Hematocrit 39.7% (36.0-47.0) Mean Corpuscular Volume 87fL (79-100) Mean Corpuscular Hemoglobin 29pg (25-35) Mean Corpuscular Hemoglobin Concent 34g/dL (31-37) Red Cell Distribution Width 14.7% (11.5-14.5) Platelet Count 185x10^3/uL (140-400) Neutrophils (%) (Auto) 67% (31-73) Lymphocytes (%) (Auto) 20% (24-48) Monocytes (%) (Auto) 11% (0-9) Eosinophils (%) (Auto) 2% (0-3) Basophils (%) (Auto) 0% (0-3) Neutrophils # (Auto) 5.1x10^3uL (1.8-7.7) Lymphocytes # (Auto) 1.5x10^3/uL (1.0-4.8) Monocytes # (Auto) 0.8x10^3/uL (0.0-1.1) Eosinophils # (Auto) 0.2x10^3/uL (0.0-0.7) Basophils # (Auto) 0.0x10^3/uL (0.0-0.2) Sodium Level 142mmol/L (136-145) Potassium Level 4.1mmol/L (3.5-5.1) Chloride Level 105mmol/L (98-107) Carbon Dioxide Level 27mmol/L (21-32) Anion Gap 10 (6-14) Blood Urea Nitrogen 25mg/dL (7-20) Creatinine 1.0mg/dL (0.6-1.0) Estimated GFR (Cockcroft-Gault) 52.4 Glucose Level 122mg/dL (70-99) Calcium Level 8.8mg/dL (8.5-10.1) Troponin I Quantitative < 0.017ng/mL (0.000-0.055) Glucose (Fingerstick) 125mg/dL (70-99) 157mg/dL (70-99) Images Images I reviewed the reports for the shoulder hip and chest. Images independently reviewed. She does have very poor bone quality and radiographic osteopenia. 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 The left hip shows a femoral neck fracture. This is similar to a [place] 1 fracture in that it is valgus and impacted, but generally a [place] 1 fracture is described as incomplete (at the medial neck), and I would describe this fracture as complete, with a visible fracture line at the medial neck. Also the angulation here was measured by me several times, generally in a 20-25 range of valgus malalignment. With 25 of angulation, AVN is more likely. Assessment/Plan Assessment/Plan Closed left distal clavicle fracture, nondisplaced Closed left hip femoral neck fracture, with valgus malalignment 20-25 degrees. It is impacted but complete. Osteopenia/osteoporosis. 85-year-old ambulator, otherwise independent. I talked to her and her family about multiple options here. Percutaneous screw fixation was my first thought here, but based on her examination, poor bone quality radiographically, associated clavicle fracture, and her age, I'm concerned that she would have continued pain from the fracture site and high risk of reoperation. There would be inability to achieve good compression across the fracture site with such poor bone quality. She would be at higher risk for AVN because of the angulation. Even a nondisplaced femoral neck fracture has AVN risk of 8-10 percent, and 25 angulation may raise the risk to about 50%. The clavicle fracture would make it difficult to use a walker and limit any weightbearing if needed for fracture healing. I spoke to her about the option of a cemented hemiarthroplasty. This is a larger operation than percutaneous screw fixation but has less risk of reoperation. Generally pain relief is quite good, and she could ambulate as tolerated with a walker, without risk of compromising fracture healing if we only did the percutaneous fixation, since the fracture would be completely removed with arthroplasty. Another option here would be bed rest until she feels well enough to get up out of bed, and functional treatment alone. She is in severe pain and that doesn't seem to be a good option. We discussed the risks of nonoperative treatment such as bedsores, pneumonia, and blood clots. There are risks of surgery, including infection, bleeding, blood clots, or other potential surgical or anesthetic complications. Percutaneous screw fixation would have a relatively high risk of AVN and need for further surgery. Cemented bipolar arthroplasty would have a lower risk of reoperation but somewhat higher risk initially of perioperative morbidity/mortality due to the larger operation. Other risks of bipolar arthroplasty include slight risk of dislocation or leg length discrepancy. I recommend a cemented bipolar arthroplasty. She and her family agree. We will proceed tomorrow, plan for 8:00 AM with cemented left hip bipolar arthroplasty for femoral neck fracture. All of their questions were answered. I recommend nonoperative treatment for the clavicle fracture with arm sling initially for comfort, and using a walker, as tolerated. JM JOHNSON MD Jul 26, 2016 17:03
[2016-07-26] MEDS ORDERED: CLINDAMYCIN 600MG PREMIX 50 ML IV PRN (17:15)
[2016-07-26 19:00] VITALS: BP 130/52
[2016-07-26] MEDS: LOSARTAN POTASSIUM 50 MG TABLET. PO SCH (21:03)
[2016-07-26] MEDS: METOPROLOL SUCC 24HR ER 50 MG TAB.ER.24H. PO SCH (21:04)
[2016-07-26 23:00] VITALS: BP 141/59
[2016-07-27] VITALS (12 sets, daily range): BP systolic 109–166; BP diastolic 45–66
[2016-07-27 05:30] LABS: BASO % 0 % (0-3); EOS % 4 % (0-3); HEMATOCRIT 36.8 % (36.0-47.0); LYMPH # 1.1 x10^3/uL (1.0-4.8); LYMPH % 11 % (24-48); MEAN CORPUSCULAR HEMOGLOBIN 29 pg (25-35); MEAN CORPUSCULAR HGB CONC 33 g/dL (31-37); MEAN CORPUSCULAR VOLUME 90 fL (79-100); MONO % 12 % (0-9); NEUT % 73 % (31-73); PLATELET COUNT 138 x10^3/uL (140-400); RED BLOOD COUNT 4.11 x10^6/uL (3.50-5.40); RED CELL DISTRIBUTION WIDTH 14.6 % (11.5-14.5); WHITE BLOOD COUNT 9.3 x10^3/uL (4.0-11.0)
[2016-07-27] MEDS: LEVOTHYROXINE 125 MCG TABLET PO SCH (05:52)
[2016-07-27] MEDS: IV 1/2 NORMAL SALINE 1,000 ML IV SCH ×3 (06:02→20:26)
[2016-07-27] MEDS ORDERED: TOBRAMYCIN POWDER 1.2 GM VIAL. ONE ×2 (06:43→10:02)
[2016-07-27] MEDS ORDERED: VANCOMYCIN 1 GM VIAL. ONE ×2 (06:43→10:02)
[2016-07-27] MEDS ORDERED: EPINEPHRINE 30 MG/30 ML VIAL. ONE (06:43)
[2016-07-27] MEDS ORDERED: TOBRAMYCIN POWDER 1.2 GM VIAL. TP PRN (06:45)
[2016-07-27] MEDS ORDERED: MORPHINE SULFATE 5 MG, KETOROLAC TROMETHAMINE 30 MG, ROPIVacaine 0.5% PF 60 ML, EPINEPH... INT ART ONE ×5 (07:00)
[2016-07-27] MEDS ORDERED: TRANEXAMIC ACID 1,000 MG in IV NORMAL SALINE 50ML 50 ML INJ ONE ×2 (07:00→09:00)
[2016-07-27] MEDS ORDERED: PROPOFOL 20 ML IV ONE (07:32)
[2016-07-27] MEDS ORDERED: FENTANYL PF 250 MCG/5 ML VIAL. ONE (07:32)
[2016-07-27] MEDS ORDERED: ONDANSETRON PF 4 MG/2 ML VIAL. ONE (07:32)
[2016-07-27] MEDS ORDERED: DEXAMETHASONE SOD PHOS 20 MG/5 ML VIAL. ONE (07:32)
[2016-07-27] MEDS ORDERED: LIDOCAINE 2% 100 MG/5 ML DISP.SYRIN. ONE (07:32)
[2016-07-27] MEDS: PANTOPRAZOLE IV PUSH 40 MG VIAL. IVP SCH (07:45)
[2016-07-27] MEDS: INSULIN ASPART 300 UNITS/3 ML INSULN.PEN SQ SCH ×3 (07:46→16:56)
[2016-07-27] MEDS ORDERED: IV RINGERS,LACTATED 1000ML 1,000 ML IV SCH (08:05)
[2016-07-27] MEDS ORDERED: MORPHINE SULFATE 2 MG/ML DISP.SYRIN. IV PRN ×2 (08:15→10:45)
[2016-07-27] MEDS ORDERED: LIDOCAINE 1% 1 ML SYRINGE. ID PRN (08:15)
[2016-07-27] MEDS ORDERED: HYDROMORPHONE 2 MG/ML VIAL. IV PRN (08:15)
[2016-07-27] MEDS ORDERED: FENTANYL PF 100 MCG/2 ML VIAL. IV PRN ×2 (08:15)
[2016-07-27] MEDS ORDERED: ONDANSETRON PF 4 MG/2 ML VIAL. IV PRN ×2 (08:15→10:45)
[2016-07-27] MEDS ORDERED: PROCHLORPERAZINE 10 MG/2 ML VIAL. IV PRN (08:15)
[2016-07-27] MEDS: AMLODIPINE BESYLATE 5 MG TABLET PO SCH (09:00)
[2016-07-27] MEDS ORDERED: SEVOFLURANE > 120 MINUTES. IH ONE (09:30)
[2016-07-27] MEDS ORDERED: PHENYLEPHRINE in 0.9% NACL PF 1 MG/10 ML DISP.SYRIN. IV ONE (09:30)
[2016-07-27] MEDS ORDERED: CEFAZOLIN 2GM PREMIX 50 ML IV ONE (09:45)
[2016-07-27] MEDS ORDERED: MORPHINE PF 5 MG/10 ML VIAL. ONE (10:30)
[2016-07-27] MEDS ORDERED: IV 1/2 NORMAL SALINE 1,000 ML IV SCH (10:44)
--- NOTE | 2016-07-27 10:44 | PDOC4 ---
Operative Note Operative Note Date of Procedure: 07/27/2016 Pre-Op Diagnosis: left hip femoral neck fracture, closed and displaced. Closed left distal clavicle fracture, nondisplaced. Post-Op Diagnosis: left hip femoral neck fracture, closed and displaced. Closed left distal clavicle fracture, nondisplaced. Procedure/Anesthesia: left hip bipolar arthroplasty. Closed treatment of clavicular fracture; without manipulation. Anesthesia Type: General Surgeon: Jm Irving MD Snipper: Meg Piper EBL: 100 mL Specimens Obtained: femoral head Complications: None Implant Company: [employer] Drains: none INDICATION FOR PROCEDURE: The patient is an 85 year old female community ambulator, who fell, fracturing the left hip and the left clavicle. X-rays show a femoral neck fracture with valgus angulation 20-25, and nondisplaced distal clavicle fracture.. The patient and I and the patient's family discussed the risks, benefits and alternatives of treatment. One alternative for treatment of a hip fracture is bedrest, which I generally do not recommend due to the risk of bedsores, pneumonia, and blood clots. Another option for this fracture would be percutaneous screw fixation. Her large size, poor bone quality, severe hip pain, associated clavicle fracture, and fracture angulation make percutaneous screw fixation less desirable in my opinion. I recommended a cemented bipolar arthroplasty, and I talked to them about the potential risks of this, including bleeding, infection, blood clots, dislocation, leg length discrepancy or other potential surgical or anesthetic complications. I recommended closed treatment of the clavicle fracture without manipulation. All of their questions were answered about surgery and they desired to proceed. A written consent was obtained. PROCEDURE IN DETAIL: The patient was identified in the preoperative holding area. The correct left hip was marked by me. The patient was taken to the operating room where a general anesthetic was used. Preoperative antibiotics were given intravenously. MRSA screen had been ordered but was not yet resulted. 2 g of Ancef were used. The patient was positioned laterally on a delatorre-bag with the bony prominences well padded. A time-out procedure was performed. All of the operating team wore the personal ventilated exhaust scrub suits. The hip and limb were thoroughly prepped sterilely, and then draping was performed, using a sterile Ioban hip drape and an impervious stockinette such that the skin was entirely covered. A posterior approach to the hip was used. Sharp dissection was used and Bovie electrocautery was used for hemostasis. Gelpi retractors were placed. Bovie electrocautery was used and the fascia was exposed. The fascia was divided sharply and then a Charnley retractor was placed. My community program assistant internally rotated the hip and I divided the short external rotators off the posterior aspect of the hip. The Charnley retractor was placed deeper now to protect the sciatic nerve with the short external rotators. The capsule was divided in an inverted T fashion. The fracture was identified, and was easily displaced and unstable. The neck was recut with a saw. The neck fragment was removed. The head was difficult to remove due to poor bone quality. The corkscrew device was inserted several times into the femoral head, and simply pulled free from the very soft bone, an indication that screw fixation would likely also had difficulty with purchase. The head was ultimately removed with the corkscrew after several attempts, and measured using templates. The acetabulum was cleared of bony fragments. The lateral aspect of the cut femoral neck was exposed. A box osteotome was used to enlarge the entry, at the lateral cortex of the femoral neck. A manual T-handle canal finder was used first, followed by sequential power reaming based on x-rays sizing and intramedullary bone chatter. Sequential broaching was then performed and then the calcar reamer was used to ream the neck on the final broach. Different head and neck lengths were trialed until satisfactory length and stability were achieved in full extension, hip flexion of 90 degrees , and internal rotation. Trial components were removed, and the canal was irrigated thoroughly with the Simpulse device, and then dried carefully. Epinephrine-saline irrigation was also used to help prevent bone cement associated hypertension. A cement restrictor was placed. The final implants were opened based on the trial sizing. Two packages of Sinai speed set bone cement were mixed in powdered form with 1 g vancomycin, and 1.2 g tobramycin, and then were vacuum- mixed with the monomer, and placed into a cement gun. The cement was now pressurized down the canal against the cement restrictor using a third- generation cementing technique. The final stem was now cemented, and after excess cement was removed, the stem was held in an anteverted and valgus position until the cement hardened. The final head assembly was tamped onto the Irvin taper. The hip was reduced a final time with my community program assistant applying longitudinal traction and rotation, while I guided the head into the acetabulum. A final check was made of limb length and stability in multiple positions. Copious irrigation was used. A periarticular injection was used. The capsule was closed with #2 Ethibond. The fascia was closed with #2 Vicryl. #1 Vicryl was used in the deep subcutaneous fascia due to the patients thick adipose tissue. My community program assistant completed the closure now using 2-0 Vicryl suture in the subcutaneous tissues, and sadi in the skin. Xeroform and a bulky sterile dressing were applied. An abduction pillow was used. An arm sling will be used for the clavicle fracture. The patient tolerated the procedure well. Needle and sponge counts were correct. There were no apparent complications. JM IRVING MD Jul 27, 2016 10:44
[2016-07-27] MEDS ORDERED: HYDROCODONE/APAP 7.5/325MG TABLET. PO PRN ×2 (10:45)
[2016-07-27] MEDS ORDERED: MORPHINE SULFATE 4 MG/ML DISP.SYRIN. IV PRN (10:45)
[2016-07-27] MEDS ORDERED: DEXTROSE 50% 25 GM / 50ML DISP.SYRIN. IV PRN (10:45)
[2016-07-27] MEDS ORDERED: OXYCODONE IR 5 MG TABLET. PO PRN (10:45)
[2016-07-27] MEDS ORDERED: CEFAZOLIN 2GM PREMIX 50 ML IV SCH (11:00)
--- NOTE | 2016-07-27 11:09 | EKG ---
[facility] [address] [place] [address] Test Date: 2016-07-27 Test Time: 11:09:01 Pat Name: JOSSUE WILLOUGHBY Department: Room: 506 1 Gender: F Delivery Clerk: : [id number] Requested By: MIR GÓMEZ Order Number: [id number] Reading MD: Russel Paulino Measurements Intervals [place] Rate: 95 P: 48 NV: 186 QRS: 4 QRSD: 88 T: 60 QT: 360 QTc: 456 Interpretive Statements SINUS RHYTHM VENTRICULAR PREMATURE COMPLEX(ES) ABNORMAL ECG RI6.01 No previous ECG available for comparison Electronically Signed On 08-04-2016 16:59:54 CDT by Russel Paulino
[2016-07-27] MEDS ORDERED: ALBUTEROL SULFATE 2.5 MG/3 ML NEBU. NEB ONE (11:45)
--- NOTE | 2016-07-27 11:45 | RAD ---
Indication postop. AP and lateral views of the left hip were obtained. A left hip prosthesis is now seen. Postoperative changes are seen in the soft tissues. No unexpected finding is seen. IMPRESSION:: Hip replacement. No complication seen
--- NOTE | 2016-07-27 13:21 | PDOC ---
PROGRESS NOTES Chief Complaint Chief Complaint 1. Left fem neck fx, closed 2. Left distal clavicular fx, closed 3. MEchanical fall 4. HTN, controlled 5. Hypothyroidism on synthroid History of Present Illness History of Present Illness undergoing left hip sx LAbs reviewed Plan: Check post op labs Post op care ff up vit D levels PT/OT SW for dc planning rehab etc Will see later post op Vitals Vitals Vital Signs Date Time Temp Pulse Resp B/P Pulse Ox O2 Delivery O2 Flow Rate FiO2 07/27/16 12:20 75 14 140/61 93 Venturi Mask 15 07/27/16 12:05 99.9 99.9 Physical Exam General: Alert, Oriented X3, Cooperative, No acute distress Heart: Regular rate Abdomen: Soft Extremities: Other (the left shoulder is pinpoint tender to palpation at the distal clavicle. Shoulder alignment is grossly normal. Skin over the fracture is intact. Passive range of motion of the shoulder causes slight pain at the distal clavicle. Motor strength and sensory function distally are preserved on the left upper extremity.) Skin: No rashes, No breakdown Labs LABS Laboratory Tests Test 07/26/16 16:37 07/26/16 20:48 07/27/16 04:11 07/27/16 07:33 Glucose (Fingerstick) 157mg/dL (70-99) 131mg/dL (70-99) 111mg/dL (70-99) White Blood Count 9.3x10^3/uL (4.0-11.0) Red Blood Count 4.11x10^6/uL (3.50-5.40) Hemoglobin 12.0g/dL (12.0-15.5) Hematocrit 36.8% (36.0-47.0) Mean Corpuscular Volume 90fL (79-100) Mean Corpuscular Hemoglobin 29pg (25-35) Mean Corpuscular Hemoglobin Concent 33g/dL (31-37) Red Cell Distribution Width 14.6% (11.5-14.5) Platelet Count 138x10^3/uL (140-400) Neutrophils (%) (Auto) 73% (31-73) Lymphocytes (%) (Auto) 11% (24-48) Monocytes (%) (Auto) 12% (0-9) Eosinophils (%) (Auto) 4% (0-3) Basophils (%) (Auto) 0% (0-3) Neutrophils # (Auto) 6.7x10^3uL (1.8-7.7) Lymphocytes # (Auto) 1.1x10^3/uL (1.0-4.8) Monocytes # (Auto) 1.1x10^3/uL (0.0-1.1) Eosinophils # (Auto) 0.4x10^3/uL (0.0-0.7) Basophils # (Auto) 0.0x10^3/uL (0.0-0.2) Test 07/27/16 11:57 Glucose (Fingerstick) 146mg/dL (70-99) Assessment and Plan Assessmemt and Plan Problems Medical Problems: (1) Fall Status: Acute (2) Hypoxia Status: Acute (3) Injury of clavicle Status: Acute Problems: Comment Review of Relevant I have reviewed the following items jenifer (where applicable) has been applied. Labs Laboratory Tests Test 07/25/16 22:20 07/25/16 22:22 07/26/16 11:51 07/26/16 16:37 Urine Collection Type Unknown Urine Color Yellow Urine Clarity Clear Urine pH 7.5 Urine Specific [place] 1.015 Urine Protein Negativemg/dL (NEG-TRACE) Urine Glucose (UA) Negativemg/dL (NEG) Urine Ketones (Stick) Negativemg/dL (NEG) Urine Blood Negative (NEG) Urine Nitrite Negative (NEG) Urine Bilirubin Negative (NEG) Urine Urobilinogen Dipstick 0.2mg/dL (0.2 mg/dL) Urine Leukocyte Esterase Small (NEG) Urine RBC 0/HPF (0-2) Urine WBC 5-10/HPF (0-4) Urine Squamous Epithelial Cells Few/LPF Urine Renal Epithelial Cells Occ/LPF Urine Bacteria Few/HPF (0-FEW) Urine Mucus Mod/LPF White Blood Count 7.6x10^3/uL (4.0-11.0) Red Blood Count 4.55x10^6/uL (3.50-5.40) Hemoglobin 13.3g/dL (12.0-15.5) Hematocrit 39.7% (36.0-47.0) Mean Corpuscular Volume 87fL (79-100) Mean Corpuscular Hemoglobin 29pg (25-35) Mean Corpuscular Hemoglobin Concent 34g/dL (31-37) Red Cell Distribution Width 14.7% (11.5-14.5) Platelet Count 185x10^3/uL (140-400) Neutrophils (%) (Auto) 67% (31-73) Lymphocytes (%) (Auto) 20% (24-48) Monocytes (%) (Auto) 11% (0-9) Eosinophils (%) (Auto) 2% (0-3) Basophils (%) (Auto) 0% (0-3) Neutrophils # (Auto) 5.1x10^3uL (1.8-7.7) Lymphocytes # (Auto) 1.5x10^3/uL (1.0-4.8) Monocytes # (Auto) 0.8x10^3/uL (0.0-1.1) Eosinophils # (Auto) 0.2x10^3/uL (0.0-0.7) Basophils # (Auto) 0.0x10^3/uL (0.0-0.2) Sodium Level 142mmol/L (136-145) Potassium Level 4.1mmol/L (3.5-5.1) Chloride Level 105mmol/L (98-107) Carbon Dioxide Level 27mmol/L (21-32) Anion Gap 10 (6-14) Blood Urea Nitrogen 25mg/dL (7-20) Creatinine 1.0mg/dL (0.6-1.0) Estimated GFR (Cockcroft-Gault) 52.4 Glucose Level 122mg/dL (70-99) Calcium Level 8.8mg/dL (8.5-10.1) Troponin I Quantitative < 0.017ng/mL (0.000-0.055) Glucose (Fingerstick) 125mg/dL (70-99) 157mg/dL (70-99) Test 07/26/16 20:48 07/27/16 04:11 07/27/16 07:33 07/27/16 11:57 Glucose (Fingerstick) 131mg/dL (70-99) 111mg/dL (70-99) 146mg/dL (70-99) White Blood Count 9.3x10^3/uL (4.0-11.0) Red Blood Count 4.11x10^6/uL (3.50-5.40) Hemoglobin 12.0g/dL (12.0-15.5) Hematocrit 36.8% (36.0-47.0) Mean Corpuscular Volume 90fL (79-100) Mean Corpuscular Hemoglobin 29pg (25-35) Mean Corpuscular Hemoglobin Concent 33g/dL (31-37) Red Cell Distribution Width 14.6% (11.5-14.5) Platelet Count 138x10^3/uL (140-400) Neutrophils (%) (Auto) 73% (31-73) Lymphocytes (%) (Auto) 11% (24-48) Monocytes (%) (Auto) 12% (0-9) Eosinophils (%) (Auto) 4% (0-3) Basophils (%) (Auto) 0% (0-3) Neutrophils # (Auto) 6.7x10^3uL (1.8-7.7) Lymphocytes # (Auto) 1.1x10^3/uL (1.0-4.8) Monocytes # (Auto) 1.1x10^3/uL (0.0-1.1) Eosinophils # (Auto) 0.4x10^3/uL (0.0-0.7) Basophils # (Auto) 0.0x10^3/uL (0.0-0.2) Laboratory Tests Test 07/26/16 16:37 07/26/16 20:48 07/27/16 04:11 07/27/16 07:33 Glucose (Fingerstick) 157mg/dL (70-99) 131mg/dL (70-99) 111mg/dL (70-99) White Blood Count 9.3x10^3/uL (4.0-11.0) Red Blood Count 4.11x10^6/uL (3.50-5.40) Hemoglobin 12.0g/dL (12.0-15.5) Hematocrit 36.8% (36.0-47.0) Mean Corpuscular Volume 90fL (79-100) Mean Corpuscular Hemoglobin 29pg (25-35) Mean Corpuscular Hemoglobin Concent 33g/dL (31-37) Red Cell Distribution Width 14.6% (11.5-14.5) Platelet Count 138x10^3/uL (140-400) Neutrophils (%) (Auto) 73% (31-73) Lymphocytes (%) (Auto) 11% (24-48) Monocytes (%) (Auto) 12% (0-9) Eosinophils (%) (Auto) 4% (0-3) Basophils (%) (Auto) 0% (0-3) Neutrophils # (Auto) 6.7x10^3uL (1.8-7.7) Lymphocytes # (Auto) 1.1x10^3/uL (1.0-4.8) Monocytes # (Auto) 1.1x10^3/uL (0.0-1.1) Eosinophils # (Auto) 0.4x10^3/uL (0.0-0.7) Basophils # (Auto) 0.0x10^3/uL (0.0-0.2) Test 07/27/16 11:57 Glucose (Fingerstick) 146mg/dL (70-99) Medications Current Medications Acetaminophen (Tylenol) 650 mg 1X ONCE PO Last administered on 07/25/16 22:07 ; Start 07/25/16 at 22:00; Stop 07/25/16 at 22:01; Status DC Metoprolol Tartrate (Lopressor) 50 mg 1X ONCE PO Last administered on 23:43; Start 07/25/16 at 23:30; Stop 07/25/16 at 23:31; Status DC Ondansetron HCl (Zofran) 4 mg PRN Q8HRS PRN IV NAUSEA/VOMITING; Start 07/25/16 at 23:30; Stop 07/26/16 at 09:50; Status DC Acetaminophen (Tylenol) 650 mg PRN Q4HRS PRN PO FEVER Last administered on 07/26 21:11; Start 07/25/16 at 23:30; Stop 07/26/16 at 23:29; Status DC Pneumococcal Polyvalent Vaccine (Do NOT chart on this placeholder) 1 each 1X ONCE MC ; Start 07/26/16 at 03:00; Stop 07/26/16 at 03:01; Status UNV Pneumococcal Polyvalent Vaccine (Pneumovax 23) 0.5 ml ONCE ONCE VAX IM ; Start 07/26/16 at 09:00; Stop 07/26/16 at 09:01; Status DC Tramadol HCl (Ultram) 50 mg PRN Q6HRS PRN PO PAIN Last administered on 18:09; Start 07/26/16 at 03:30 Ondansetron HCl (Zofran) 4 mg PRN Q6HRS PRN IV NAUSEA/VOMITING 1ST CHOICE; Start 07/26/16 at 09:48 Insulin Aspart (Novolog) 0-9 UNITS TIDWMEALS SQ ; Start 07/26/16 at 12:00 Dextrose 12.5 gm PRN Q15MIN PRN IV SEE COMMENTS; Start 07/26/16 at 10:00 Amlodipine Besylate (Norvasc) 5 mg DAILY PO Last administered on 07/26/16 10: 24; Start 07/26/16 at 10:30 Levothyroxine Sodium (Synthroid) 125 mcg DAILY07 PO Last administered on 10:25; Start 07/26/16 at 10:30 Losartan Potassium (Cozaar) 50 mg HS PO Last administered on 07/26/16 21:03; Start 07/26/16 at 21:00 Metoprolol Succinate 50 mg 50 mg HS PO Last administered on 07/26/16 21:04; Start 07/26/16 at 21:00 Sodium Chloride (Iv Sodium Chloride 0.45%) 1,000 ml @ 100 mls/hr Q10H IV Last administered on 07/27/16 06:02; Start 07/26/16 at 10:00 Pantoprazole Sodium (Protonix Vial) 40 mg DAILYAC IVP Last administered on 07/27 07:45; Start 07/27/16 at 07:30 Calcium Carbonate/ Glycine 500 mg 500 mg PRN AFTMEALHC PRN PO INDIGESTION Last administered on 07/26/16 15:07; Start 07/26/16 at 14:45 Cefazolin Sodium 50 ml @ 100 mls/hr 1X ONCE IV Last administered on 17:36; Start 07/26/16 at 17:00; Stop 07/26/16 at 17:29; Status DC Clindamycin Phosphate (Cleocin 600 Mg Premix) 50 ml @ 100 mls/hr 1X PREOP PRN IV see comments; Start 07/26/16 at 17:15 Tobramycin Sulfate 1.2 gm 1.2 gm PRN 1X PRN TP FOR SURGERY; Start 07/27/16 at 06:45; Stop 07/27/16 at 09:00; Status DC Tranexamic Acid 1000 mg/Sodium Chloride 60 ml @ 60 mls/hr 1X PERIOP ONCE INJ Last administered on 07/27/16 09:24; Start 07/27/16 at 07:00; Stop 07/27/16 at 07:59; Status DC Tranexamic Acid/ Sodium Chloride (Cyklokapron/Iv Sodium Chloride 0.9% 50ml) 60 ml @ 60 mls/hr 1X PERIOP ONCE INJ Last administered on 07/27/16 09:24; Start 07/27/16 at 09:00; Stop 07/27/16 at 09:59; Status DC Vancomycin HCl 1 gm STK-MED ONCE .ROUTE ; Start 07/27/16 at 06:43; Stop at 06:44; Status DC Tobramycin Sulfate 1.2 gm STK-MED ONCE .ROUTE ; Start 07/27/16 at 06:43; Stop at 06:44; Status DC Epinephrine HCl 30 mg 30 mg STK-MED ONCE .ROUTE ; Start 07/27/16 at 06:43; Stop 07/27/16 at 06:44; Status DC Morphine Sulfate/ Ketorolac Tromethamine/ Ropivacaine/ Epinephrine HCl/ Sodium Chloride (Morphine 5mg Syringe/Toradol/ Naropin 0.5%/ Adrenalin/Iv Sodium Chloride 0.9% 100ml) 100.5 ml @ 100.5 mls/ hr 1X PERIOP ONCE INT ART Last administered on 07/27/16 09:24; Start 07/27/16 at 07:00; Stop 07/27/16 at 07:59 ; Status DC Fentanyl Citrate 250 mcg 250 mcg STK-MED ONCE .ROUTE ; Start 07/27/16 at 07:32; Stop 07/27/16 at 07:33; Status DC Propofol (Diprivan) 20 ml @ As Directed STK-MED ONCE IV ; Start 07/27/16 at 07: 32; Stop 07/27/16 at 07:33; Status DC Dexamethasone Sodium Phosphate (Decadron) 20 mg STK-MED ONCE .ROUTE ; Start at 07:32; Stop 07/27/16 at 07:33; Status DC Ondansetron HCl (Zofran) 4 mg STK-MED ONCE .ROUTE ; Start 07/27/16 at 07:32; Stop 07/27/16 at 07:33; Status DC Lidocaine HCl 100 mg STK-MED ONCE .ROUTE ; Start 07/27/16 at 07:32; Stop at 07:33; Status DC Ondansetron HCl (Zofran) 4 mg PRN Q6HRS PRN IV Nausea; Start 07/27/16 at 08:15 ; Stop 07/28/16 at 08:14 Fentanyl Citrate (Fentanyl 2ml Vial) 25 mcg PRN Q5MIN PRN IV MILD PAIN; Start 07/27/16 at 08:15; Stop 07/28/16 at 08:14 Fentanyl Citrate (Fentanyl 2ml Vial) 50 mcg PRN Q5MIN PRN IV MODERATE PAIN; Start 07/27/16 at 08:15; Stop 07/28/16 at 08:14 Morphine Sulfate 1 mg 1 mg PRN Q10MIN PRN IV SEVERE PAIN; Start 07/27/16 at 08: 15; Stop 07/28/16 at 08:14 Lactated Ringer's (Iv Lactated Ringers) 1,000 ml @ 0 mls/hr Q0M IV ; Start at 08:05; Stop 07/27/16 at 20:04 Lidocaine HCl 2 ml 1X PRN PRN ID IV START; Start 07/27/16 at 08:15; Stop at 08:14 Hydromorphone HCl (Dilaudid) 0.5 mg PRN Q10MIN PRN IV SEV PAIN,Second choice; Start 07/27/16 at 08:15; Stop 07/28/16 at 08:14 Prochlorperazine Edisylate (Compazine) 5 mg PACU PRN PRN IV NAUSEA Last administered on 07/27/16t 11:06; Start 07/27/16 at 08:15; Stop 07/28/16 at 08:14 Phenylephrine HCl 1 mg STK-MED ONCE IV ; Start 07/27/16 at 09:30; Stop 07/27/16 at 09:31; Status DC Sevoflurane 90 ml 90 ml STK-MED ONCE IH ; Start 07/27/16 at 09:30; Stop at 09:31; Status DC Cefazolin Sodium/ Dextrose (Ancef 2gm Premix) 50 ml @ 100 mls/hr 1X ONCE IV Last administered on 07/27/16t 09:06; Start 07/27/16 at 09:45; Stop 07/27/16 at 10:14; Status DC Vancomycin HCl 1 gm STK-MED ONCE .ROUTE ; Start 07/27/16 at 10:02; Stop at 10:03; Status DC Tobramycin Sulfate 1.2 gm STK-MED ONCE .ROUTE ; Start 07/27/16 at 10:02; Stop at 10:03; Status DC Morphine Sulfate (Morphine Preservative Free) 5 mg STK-MED ONCE .ROUTE ; Start 07/27/16 at 10:30; Stop 07/27/16 at 10:31; Status DC Oxycodone HCl (Roxicodone) 5 mg PRN Q3HRS PRN PO PAIN; Start 07/27/16 at 10:45 Morphine Sulfate 2 mg PRN Q1HR PRN IV PAIN; Start 07/27/16 at 10:45 Fentanyl Citrate (Fentanyl 2ml Vial) 25 mcg PRN Q1HR PRN IV PAIN; Start at 10:45 Acetaminophen (Tylenol) 500 mg TID PO ; Start 07/27/16 at 14:00 Multivitamins (Thera M Plus) 1 tab DAILY PO ; Start 07/28/16 at 09:00 Senna/Docusate Sodium (Senna Plus) 1 tab DAILY PO ; Start 07/28/16 at 09:00 Polyethylene Glycol (miraLAX PACKET) 17 gm PRN DAILY PRN PO CONSTIPATION; Start 07/27/16 at 10:45 Vitamin D 1000 unit 1,000 unit DAILY PO ; Start 07/28/16 at 09:00 Sodium Chloride (Iv Sodium Chloride 0.45%) 1,000 ml @ 75 mls/hr [id number] IV ; Start 07/27/16 at 10:44 Ondansetron HCl (Zofran) 4 mg PRN Q4HRS PRN IV NAUSEA/VOMITING; Start 07/27/16 at 10:45 Aspirin (William Aspirin) 325 mg BID PO ; Start 07/27/16 at 21:00; Status UNV Magnesium Hydroxide (Milk Of Magnesia) 2,400 mg 1X PRN PRN PO CONSTIPATION; Start 07/28/16 at 06:00; Stop 07/29/16 at 05:59 Bisacodyl (Dulcolax Supp) 10 mg 1X PRN PRN MT CONSTIPATION; Start 07/28/16 at 16:00; Stop 07/29/16 at 15:59 Acetaminophen/ Hydrocodone Bitart (Lortab 7.5/325) 1 tab PRN Q4HRS PRN PO PAIN ; Start 07/27/16 at 10:45 Morphine Sulfate 4 mg PRN Q2HR PRN IV PAIN; Start 07/27/16 at 10:45 Acetaminophen/ Hydrocodone Bitart (Lortab 7.5/325) 2 tab PRN Q4HRS PRN PO PAIN ; Start 07/27/16 at 10:45 Dextrose 12.5 gm 12.5 gm PRN Q15MIN PRN IV SEE COMMENTS; Start 07/27/16 at 10: 45 Cefazolin Sodium/ Dextrose 50 ml @ 100 mls/hr Q6H IV ; Start 07/27/16 at 11:00 ; Stop 07/27/16 at 23:29; Status UNV Clindamycin Phosphate (Cleocin 600 Mg Premix) 50 ml @ 100 mls/hr Q6H IV ; Start 07/27/16 at 15:00; Stop 07/28/16 at 03:29 Albuterol Sulfate (Ventolin Neb Soln) 2.5 mg 1X ONCE NEB Last administered on 07/27/16t 12:01; Start 07/27/16 at 11:45; Stop 07/27/16 at 11:56; Status DC Active Scripts Active Reported Toprol Xl (Metoprolol Succinate) 50 Mg Tab.er.24h 1 Tab PO HS Losartan Potassium 50 Mg Tablet 50 Mg PO HS Norvasc (Amlodipine Besylate) 5 Mg Tablet 1 Tab PO DAILY Levothyroxine Sodium 125 Mcg Tablet 1 Tab PO DAILY Vitals/I & O Vital Sign - Last 24 Hours 07/26/16 07/26/16 07/26/16 07/26/16 15:36 16:32 18:09 19:00 Temp 99.5 100.2 96.4 99.5 100.2 96.4 Pulse 67 69 Resp 18 20 18 B/P 143/59 130/52 Pulse Ox 94 94 92 O2 Delivery Nasal Cannula Nasal Cannula Nasal Cannula O2 Flow Rate 2.0 2.0 2.0 07/26/16 07/26/16 07/26/16 07/26/16 19:09 20:04 21:03 21:04 Pulse 69 69 B/P 144/60 144/60 Pulse Ox 94 O2 Delivery Nasal Cannula Nasal Cannula O2 Flow Rate 2.0 2.0 07/26/16 07/27/16 07/27/16 07/27/16 23:00 03:00 07:00 08:00 Temp 98.4 97.9 97.7 98.4 97.9 97.7 Pulse 66 70 75 Resp 18 18 18 B/P 141/59 154/66 156/63 Pulse Ox 92 92 90 O2 Delivery Nasal Cannula Nasal Cannula Nasal Cannula Nasal Cannula O2 Flow Rate 2.0 2.0 2.0 2.0 07/27/16 07/27/16 07/27/16 07/27/16 10:50 11:05 11:20 11:35 Temp 100.7 99.9 100.7 99.9 Pulse 91 98 82 78 Resp 16 16 14 16 B/P 142/61 145/61 145/61 144/56 Pulse Ox 97 92 94 93 O2 Delivery Simple Mask Nasal Cannula Venturi Mask Venturi Mask O2 Flow Rate 10 6 15 15 07/27/16 07/27/16 07/27/16 11:50 12:05 12:20 Temp 99.9 99.9 Pulse 74 74 75 Resp 14 14 14 B/P 138/62 135/59 140/61 Pulse Ox 94 95 93 O2 Delivery Venturi Mask Venturi Mask Venturi Mask O2 Flow Rate 15 15 15 Intake and Output 07/26/16 07/26/16 07/27/16 15:00 23:00 07:00 Intake Total 180 ml 360 ml Output Total 575 ml Balance 180 ml -215 ml JEFFREY CAUSEY MD Jul 27, 2016 13:20
[2016-07-27] MEDS: ONDANSETRON PF 4 MG/2 ML VIAL. IV PRN ×2 (13:51→20:25)
[2016-07-27] MEDS: ACETAMINOPHEN 500 MG TABLET PO SCH ×2 (13:53→20:20)
[2016-07-27] MEDS: CLINDAMYCIN 600MG PREMIX 50 ML IV SCH ×2 (15:51→20:25)
[2016-07-27] MEDS: LOSARTAN POTASSIUM 50 MG TABLET. PO SCH (20:19)
[2016-07-27] MEDS: METOPROLOL SUCC 24HR ER 50 MG TAB.ER.24H. PO SCH (20:20)
[2016-07-27] MEDS ORDERED: ASPIRIN 325 MG TABLET PO SCH (21:00)
[2016-07-28 03:00] VITALS: BP 154/65
[2016-07-28] MEDS: CLINDAMYCIN 600MG PREMIX 50 ML IV SCH (03:17)
[2016-07-28 04:15] LABS: HEMATOCRIT 32.5 % (36.0-47.0); HEMOGLOBIN 10.8 g/dL (12.0-15.5)
[2016-07-28] MEDS ORDERED: MAGNESIUM HYDROXIDE 2,400 MG/30 ML ORAL.SUSP. PO PRN (06:00)
[2016-07-28] MEDS: PANTOPRAZOLE IV PUSH 40 MG VIAL. IVP SCH ×2 (06:42→09:05)
[2016-07-28] MEDS: LEVOTHYROXINE 125 MCG TABLET PO SCH (06:42)
[2016-07-28 07:00] VITALS: BP 120/49
[2016-07-28] MEDS: TRAMADOL 50 MG TABLET. PO PRN ×3 (07:03→21:05)
[2016-07-28] MEDS: INSULIN ASPART 300 UNITS/3 ML INSULN.PEN SQ SCH ×3 (08:00→17:00)
[2016-07-28] MEDS: ACETAMINOPHEN 500 MG TABLET PO SCH ×3 (09:00→21:01)
[2016-07-28] MEDS: SENNOSIDES/DOCUSATE 8.6/50MG TABLET. PO SCH (09:00)
[2016-07-28] MEDS: ENOXAPARIN 40 MG/0.4 ML SYRINGE. SQ SCH (09:03)
[2016-07-28] MEDS: MULTIVITAMIN with MINERAL TABLET. PO SCH (09:03)
[2016-07-28] MEDS: AMLODIPINE BESYLATE 5 MG TABLET PO SCH (09:04)
[2016-07-28] MEDS: CHOLECALCIFEROL (VITAMIN D3) 1,000 UNIT TABLET PO SCH (09:04)
[2016-07-28] MEDS: POLYETHYLENE GLYCOL 3350 17 GM PACKET. PO PRN (09:08)
[2016-07-28] MEDS ORDERED: ALBUTEROL SULFATE 2.5 MG/3 ML NEBU. NEB PRN (09:45)
[2016-07-28 11:00] VITALS: BP 124/53
[2016-07-28] MEDS: FENTANYL PF 100 MCG/2 ML VIAL. IV PRN ×2 (11:02→14:06)
--- NOTE | 2016-07-28 13:07 | PDOC ---
PROGRESS NOTES Chief Complaint Chief Complaint A/P left hip femoral neck fracture, closed and displaced. Closed left distal clavicle fracture, nondisplaced HTN HYPOTHYROIDISM Plan incentive spirometry Pain control Avoid co2 narcosis Limit IV narcotics, oral [place] DVT prophylaxis labs reviewed, History of Present Illness History of Present Illness pain controlled no fever no chills Vitals Vitals Vital Signs Date Time Temp Pulse Resp B/P Pulse Ox O2 Delivery O2 Flow Rate FiO2 07/28/16 12:11 90 Nasal Cannula 4.0 07/28/16 11:32 18 07/28/16 11:00 99.3 79 124/53 99.3 Physical Exam General: Alert, Oriented X3, Cooperative, No acute distress Heart: Regular rate, Normal S1, Normal S2 Lungs: Clear Abdomen: Soft Extremities: Other Skin: No rashes, No breakdown Labs LABS Laboratory Tests Test 07/28/16 03:35 Hemoglobin 10.8g/dL (12.0-15.5) Hematocrit 32.5% (36.0-47.0) Mean Corpuscular Hemoglobin Concent 33g/dL (31-37) Assessment and Plan Assessmemt and Plan Problems Medical Problems: (1) Fall Status: Acute (2) Hypoxia Status: Acute (3) Injury of clavicle Status: Acute Problems: Comment Review of Relevant I have reviewed the following items jenifer (where applicable) has been applied. Labs Laboratory Tests Test 07/26/16 16:37 07/26/16 17:45 07/26/16 20:48 07/27/16 04:11 Glucose (Fingerstick) 157mg/dL (70-99) 131mg/dL (70-99) Nasal Screen MRSA (PCR) Negative (Negative) White Blood Count 9.3x10^3/uL (4.0-11.0) Red Blood Count 4.11x10^6/uL (3.50-5.40) Hemoglobin 12.0g/dL (12.0-15.5) Hematocrit 36.8% (36.0-47.0) Mean Corpuscular Volume 90fL (79-100) Mean Corpuscular Hemoglobin 29pg (25-35) Mean Corpuscular Hemoglobin Concent 33g/dL (31-37) Red Cell Distribution Width 14.6% (11.5-14.5) Platelet Count 138x10^3/uL (140-400) Neutrophils (%) (Auto) 73% (31-73) Lymphocytes (%) (Auto) 11% (24-48) Monocytes (%) (Auto) 12% (0-9) Eosinophils (%) (Auto) 4% (0-3) Basophils (%) (Auto) 0% (0-3) Neutrophils # (Auto) 6.7x10^3uL (1.8-7.7) Lymphocytes # (Auto) 1.1x10^3/uL (1.0-4.8) Monocytes # (Auto) 1.1x10^3/uL (0.0-1.1) Eosinophils # (Auto) 0.4x10^3/uL (0.0-0.7) Basophils # (Auto) 0.0x10^3/uL (0.0-0.2) Test 07/27/16 07:33 07/27/16 11:57 07/28/16 03:35 Glucose (Fingerstick) 111mg/dL (70-99) 146mg/dL (70-99) Hemoglobin 10.8g/dL (12.0-15.5) Hematocrit 32.5% (36.0-47.0) Mean Corpuscular Hemoglobin Concent 33g/dL (31-37) Laboratory Tests Test 07/28/16 03:35 Hemoglobin 10.8g/dL (12.0-15.5) Hematocrit 32.5% (36.0-47.0) Mean Corpuscular Hemoglobin Concent 33g/dL (31-37) Microbiology 07/25/16 Urine Culture - Final, Complete 07/25/16 Urine Culture Result 1 (MIRANDA) - Final, Complete 07/25/16 Urine Culture Result 2 (MIRANDA) - Final, Complete Medications Current Medications Acetaminophen (Tylenol) 650 mg 1X ONCE PO Last administered on 07/25/16 22:07 ; Start 07/25/16 at 22:00; Stop 07/25/16 at 22:01; Status DC Metoprolol Tartrate (Lopressor) 50 mg 1X ONCE PO Last administered on 23:43; Start 07/25/16 at 23:30; Stop 07/25/16 at 23:31; Status DC Ondansetron HCl (Zofran) 4 mg PRN Q8HRS PRN IV NAUSEA/VOMITING; Start 07/25/16 at 23:30; Stop 07/26/16 at 09:50; Status DC Acetaminophen (Tylenol) 650 mg PRN Q4HRS PRN PO FEVER Last administered on 07/26 21:11; Start 07/25/16 at 23:30; Stop 07/26/16 at 23:29; Status DC Pneumococcal Polyvalent Vaccine (Do NOT chart on this placeholder) 1 each 1X ONCE MC ; Start 07/26/16 at 03:00; Stop 07/26/16 at 03:01; Status UNV Pneumococcal Polyvalent Vaccine (Pneumovax 23) 0.5 ml ONCE ONCE VAX IM ; Start 07/26/16 at 09:00; Stop 07/26/16 at 09:01; Status DC Tramadol HCl (Ultram) 50 mg PRN Q6HRS PRN PO PAIN Last administered on 07:03; Start 07/26/16 at 03:30 Ondansetron HCl (Zofran) 4 mg PRN Q6HRS PRN IV NAUSEA/VOMITING 1ST CHOICE Last administered on 07/27/16 20:25; Start 07/26/16 at 09:48 Insulin Aspart (Novolog) 0-9 UNITS TIDWMEALS SQ ; Start 07/26/16 at 12:00 Dextrose 12.5 gm PRN Q15MIN PRN IV SEE COMMENTS; Start 07/26/16 at 10:00 Amlodipine Besylate (Norvasc) 5 mg DAILY PO Last administered on 07/28/16 09: 04; Start 07/26/16 at 10:30 Levothyroxine Sodium (Synthroid) 125 mcg DAILY07 PO Last administered on 06:42; Start 07/26/16 at 10:30 Losartan Potassium (Cozaar) 50 mg HS PO Last administered on 07/26/16 21:03; Start 07/26/16 at 21:00 Metoprolol Succinate 50 mg 50 mg HS PO Last administered on 07/26/16 21:04; Start 07/26/16 at 21:00 Sodium Chloride (Iv Sodium Chloride 0.45%) 1,000 ml @ 100 mls/hr Q10H IV Last administered on 07/27/16 20:26; Start 07/26/16 at 10:00 Pantoprazole Sodium (Protonix Vial) 40 mg DAILYAC IVP Last administered on 07/28 09:05; Start 07/27/16 at 07:30 Calcium Carbonate/ Glycine 500 mg 500 mg PRN AFTMEALHC PRN PO INDIGESTION Last administered on 07/26/16 15:07; Start 07/26/16 at 14:45 Cefazolin Sodium 50 ml @ 100 mls/hr 1X ONCE IV Last administered on 17:36; Start 07/26/16 at 17:00; Stop 07/26/16 at 17:29; Status DC Clindamycin Phosphate (Cleocin 600 Mg Premix) 50 ml @ 100 mls/hr 1X PREOP PRN IV see comments; Start 07/26/16 at 17:15 Tobramycin Sulfate 1.2 gm 1.2 gm PRN 1X PRN TP FOR SURGERY; Start 07/27/16 at 06:45; Stop 07/27/16 at 09:00; Status DC Tranexamic Acid 1000 mg/Sodium Chloride 60 ml @ 60 mls/hr 1X PERIOP ONCE INJ Last administered on 07/27/16 09:24; Start 07/27/16 at 07:00; Stop 07/27/16 at 07:59; Status DC Tranexamic Acid/ Sodium Chloride (Cyklokapron/Iv Sodium Chloride 0.9% 50ml) 60 ml @ 60 mls/hr 1X PERIOP ONCE INJ Last administered on 07/27/16 09:24; Start 07/27/16 at 09:00; Stop 07/27/16 at 09:59; Status DC Vancomycin HCl 1 gm STK-MED ONCE .ROUTE ; Start 07/27/16 at 06:43; Stop at 06:44; Status DC Tobramycin Sulfate 1.2 gm STK-MED ONCE .ROUTE ; Start 07/27/16 at 06:43; Stop at 06:44; Status DC Epinephrine HCl 30 mg 30 mg STK-MED ONCE .ROUTE ; Start 07/27/16 at 06:43; Stop 07/27/16 at 06:44; Status DC Morphine Sulfate/ Ketorolac Tromethamine/ Ropivacaine/ Epinephrine HCl/ Sodium Chloride (Morphine 5mg Syringe/Toradol/ Naropin 0.5%/ Adrenalin/Iv Sodium Chloride 0.9% 100ml) 100.5 ml @ 100.5 mls/ hr 1X PERIOP ONCE INT ART Last administered on 07/27/16t 09:24; Start 07/27/16 at 07:00; Stop 07/27/16 at 07:59 ; Status DC Fentanyl Citrate 250 mcg 250 mcg STK-MED ONCE .ROUTE ; Start 07/27/16 at 07:32; Stop 07/27/16 at 07:33; Status DC Propofol (Diprivan) 20 ml @ As Directed STK-MED ONCE IV ; Start 07/27/16 at 07: 32; Stop 07/27/16 at 07:33; Status DC Dexamethasone Sodium Phosphate (Decadron) 20 mg STK-MED ONCE .ROUTE ; Start at 07:32; Stop 07/27/16 at 07:33; Status DC Ondansetron HCl (Zofran) 4 mg STK-MED ONCE .ROUTE ; Start 07/27/16 at 07:32; Stop 07/27/16 at 07:33; Status DC Lidocaine HCl 100 mg STK-MED ONCE .ROUTE ; Start 07/27/16 at 07:32; Stop at 07:33; Status DC Ondansetron HCl (Zofran) 4 mg PRN Q6HRS PRN IV Nausea; Start 07/27/16 at 08:15 ; Stop 07/28/16 at 08:14; Status DC Fentanyl Citrate (Fentanyl 2ml Vial) 25 mcg PRN Q5MIN PRN IV MILD PAIN; Start 07/27/16 at 08:15; Stop 07/28/16 at 08:14; Status DC Fentanyl Citrate (Fentanyl 2ml Vial) 50 mcg PRN Q5MIN PRN IV MODERATE PAIN; Start 07/27/16 at 08:15; Stop 07/28/16 at 08:14; Status DC Morphine Sulfate 1 mg 1 mg PRN Q10MIN PRN IV SEVERE PAIN; Start 07/27/16 at 08: 15; Stop 07/28/16 at 08:14; Status DC Lactated Ringer's (Iv Lactated Ringers) 1,000 ml @ 0 mls/hr Q0M IV ; Start at 08:05; Stop 07/27/16 at 20:04; Status DC Lidocaine HCl 2 ml 1X PRN PRN ID IV START; Start 07/27/16 at 08:15; Stop at 08:14; Status DC Hydromorphone HCl (Dilaudid) 0.5 mg PRN Q10MIN PRN IV SEV PAIN,Second choice; Start 07/27/16 at 08:15; Stop 07/28/16 at 08:14; Status DC Prochlorperazine Edisylate (Compazine) 5 mg PACU PRN PRN IV NAUSEA Last administered on 07/27/16 11:06; Start 07/27/16 at 08:15; Stop 07/28/16 at 08:14 ; Status DC Phenylephrine HCl 1 mg STK-MED ONCE IV ; Start 07/27/16 at 09:30; Stop 07/27/16 at 09:31; Status DC Sevoflurane 90 ml 90 ml STK-MED ONCE IH ; Start 07/27/16 at 09:30; Stop at 09:31; Status DC Cefazolin Sodium/ Dextrose (Ancef 2gm Premix) 50 ml @ 100 mls/hr 1X ONCE IV Last administered on 07/27/16 09:06; Start 07/27/16 at 09:45; Stop 07/27/16 at 10:14; Status DC Vancomycin HCl 1 gm STK-MED ONCE .ROUTE ; Start 07/27/16 at 10:02; Stop at 10:03; Status DC Tobramycin Sulfate 1.2 gm STK-MED ONCE .ROUTE ; Start 07/27/16 at 10:02; Stop at 10:03; Status DC Morphine Sulfate (Morphine Preservative Free) 5 mg STK-MED ONCE .ROUTE ; Start 07/27/16 at 10:30; Stop 07/27/16 at 10:31; Status DC Oxycodone HCl (Roxicodone) 5 mg PRN Q3HRS PRN PO PAIN; Start 07/27/16 at 10:45 Morphine Sulfate 2 mg PRN Q1HR PRN IV PAIN; Start 07/27/16 at 10:45 Fentanyl Citrate (Fentanyl 2ml Vial) 25 mcg PRN Q1HR PRN IV PAIN Last administered on 07/28/16 11:02; Start 07/27/16 at 10:45 Acetaminophen (Tylenol) 500 mg TID PO Last administered on 07/28/16 12:01; Start 07/27/16 at 14:00 Multivitamins (Thera M Plus) 1 tab DAILY PO Last administered on 07/28/16 09: 03; Start 07/28/16 at 09:00 Senna/Docusate Sodium (Senna Plus) 1 tab DAILY PO ; Start 07/28/16 at 09:00 Polyethylene Glycol (miraLAX PACKET) 17 gm PRN DAILY PRN PO CONSTIPATION Last administered on 07/28/16 09:08; Start 07/27/16 at 10:45 Vitamin D 1000 unit 1,000 unit DAILY PO Last administered on 07/28/16 09:04; Start 07/28/16 at 09:00 Sodium Chloride (Iv Sodium Chloride 0.45%) 1,000 ml @ 75 mls/hr [id number] IV ; Start 07/27/16 at 10:44; Stop 07/27/16 at 20:39; Status DC Ondansetron HCl (Zofran) 4 mg PRN Q4HRS PRN IV NAUSEA/VOMITING; Start 07/27/16 at 10:45 Aspirin (William Aspirin) 325 mg BID PO ; Start 07/27/16 at 21:00; Status UNV Magnesium Hydroxide (Milk Of Magnesia) 2,400 mg 1X PRN PRN PO CONSTIPATION; Start 07/28/16 at 06:00; Stop 07/29/16 at 05:59 Bisacodyl (Dulcolax Supp) 10 mg 1X PRN PRN NC CONSTIPATION; Start 07/28/16 at 16:00; Stop 07/29/16 at 15:59 Acetaminophen/ Hydrocodone Bitart (Lortab 7.5/325) 1 tab PRN Q4HRS PRN PO PAIN ; Start 07/27/16 at 10:45 Morphine Sulfate 4 mg PRN Q2HR PRN IV PAIN; Start 07/27/16 at 10:45 Acetaminophen/ Hydrocodone Bitart (Lortab 7.5/325) 2 tab PRN Q4HRS PRN PO PAIN ; Start 07/27/16 at 10:45 Dextrose 12.5 gm 12.5 gm PRN Q15MIN PRN IV SEE COMMENTS; Start 07/27/16 at 10: 45 Cefazolin Sodium/ Dextrose 50 ml @ 100 mls/hr Q6H IV ; Start 07/27/16 at 11:00 ; Stop 07/27/16 at 23:29; Status UNV Clindamycin Phosphate (Cleocin 600 Mg Premix) 50 ml @ 100 mls/hr Q6H IV Last administered on 07/28/16 03:17; Start 07/27/16 at 15:00; Stop 07/28/16 at 03:29 ; Status DC Albuterol Sulfate (Ventolin Neb Soln) 2.5 mg 1X ONCE NEB Last administered on 07/27/16 12:01; Start 07/27/16 at 11:45; Stop 07/27/16 at 11:56; Status DC Enoxaparin Sodium (Lovenox 40mg Syringe) 40 mg Q24H SQ Last administered on 09:03; Start 07/28/16 at 08:00 Albuterol Sulfate (Ventolin Neb Soln) 2.5 mg PRN QID PRN NEB WHEEZING Last administered on 07/28/16 11:06; Start 07/28/16 at 09:45 Active Scripts Active Reported Toprol Xl (Metoprolol Succinate) 50 Mg Tab.er.24h 1 Tab PO HS Losartan Potassium 50 Mg Tablet 50 Mg PO HS Norvasc (Amlodipine Besylate) 5 Mg Tablet 1 Tab PO DAILY Levothyroxine Sodium 125 Mcg Tablet 1 Tab PO DAILY Vitals/I & O Vital Sign - Last 24 Hours 07/27/16 07/27/16 07/27/16 07/27/16 13:16 13:30 14:00 14:30 Temp 97.3 97.3 97.7 97.9 97.3 97.3 97.7 97.9 Pulse 91 71 70 69 Resp 16 16 16 16 B/P 138/47 116/49 166/48 114/48 Pulse Ox 92 91 88 92 O2 Delivery Nasal Cannula Nasal Cannula Nasal Cannula Nasal Cannula O2 Flow Rate 4.0 4.0 4.0 4.0 07/27/16 07/27/16 07/27/16 07/27/16 15:00 16:01 19:00 20:00 Temp 97.9 98.6 96.9 97.9 98.6 96.9 Pulse 62 73 58 Resp 16 16 18 B/P 109/45 150/58 156/51 Pulse Ox 93 91 92 O2 Delivery Nasal Cannula Nasal Cannula Nasal Cannula Venturi Mask O2 Flow Rate 4.0 4.0 4.0 15.0 07/27/16 07/27/16 07/27/16 07/28/16 20:19 20:20 23:00 03:00 Temp 97.3 97.0 97.3 97.0 Pulse 73 73 63 65 Resp 18 18 B/P 150/58 150/58 123/63 154/65 Pulse Ox 93 94 O2 Delivery Nasal Cannula Nasal Cannula O2 Flow Rate 4.0 4.0 07/28/16 07/28/16 07/28/16 07/28/16 07:00 07:03 08:00 09:04 Temp 96.8 96.8 Pulse 71 71 Resp 20 20 B/P 120/49 120/49 Pulse Ox 95 92 O2 Delivery Venturi Mask Venturi Mask Room Air O2 Flow Rate 14.0 4.0 5.0 07/28/16 07/28/16 07/28/16 07/28/16 11:00 11:02 11:32 12:11 Temp 99.3 99.3 Pulse 79 Resp 20 18 B/P 124/53 Pulse Ox 89 89 90 O2 Delivery Nasal Cannula Room Air Nasal Cannula O2 Flow Rate 3.0 5.0 4.0 Intake and Output 07/27/16 07/27/16 07/28/16 15:00 23:00 07:00 Intake Total 1450 ml 85 ml 260 ml Output Total 300 ml 100 ml 470 ml Balance 1150 ml -15 ml -210 ml MARGARITO STALLINGS MD Jul 28, 2016 13:07
[2016-07-28] MEDS: IV 1/2 NORMAL SALINE 1,000 ML IV SCH (13:08)
--- NOTE | 2016-07-28 13:15 | PDOC ---
PROGRESS NOTES Subjective Subjective Doing well. Objective Vital Signs Vital Signs Date Time Temp Pulse Resp B/P Pulse Ox O2 Delivery O2 Flow Rate FiO2 07/28/16 12:11 90 Nasal Cannula 4.0 07/28/16 11:32 18 07/28/16 11:00 99.3 79 124/53 99.3 Physical Exam Sitting up in chair, eating lunch. Postop dressing dry and intact. Calf soft and nontender, with a negative Georgette's sign. Good dorsiflexion and plantarflexion with no evidence of neurovascular injury. NVI. Labs Laboratory Tests Test 07/26/16 16:37 07/26/16 17:45 07/26/16 20:48 07/27/16 04:11 Glucose (Fingerstick) 157mg/dL (70-99) 131mg/dL (70-99) Nasal Screen MRSA (PCR) Negative (Negative) White Blood Count 9.3x10^3/uL (4.0-11.0) Red Blood Count 4.11x10^6/uL (3.50-5.40) Hemoglobin 12.0g/dL (12.0-15.5) Hematocrit 36.8% (36.0-47.0) Mean Corpuscular Volume 90fL (79-100) Mean Corpuscular Hemoglobin 29pg (25-35) Mean Corpuscular Hemoglobin Concent 33g/dL (31-37) Red Cell Distribution Width 14.6% (11.5-14.5) Platelet Count 138x10^3/uL (140-400) Neutrophils (%) (Auto) 73% (31-73) Lymphocytes (%) (Auto) 11% (24-48) Monocytes (%) (Auto) 12% (0-9) Eosinophils (%) (Auto) 4% (0-3) Basophils (%) (Auto) 0% (0-3) Neutrophils # (Auto) 6.7x10^3uL (1.8-7.7) Lymphocytes # (Auto) 1.1x10^3/uL (1.0-4.8) Monocytes # (Auto) 1.1x10^3/uL (0.0-1.1) Eosinophils # (Auto) 0.4x10^3/uL (0.0-0.7) Basophils # (Auto) 0.0x10^3/uL (0.0-0.2) Test 07/27/16 07:33 07/27/16 11:57 07/28/16 03:35 Glucose (Fingerstick) 111mg/dL (70-99) 146mg/dL (70-99) Hemoglobin 10.8g/dL (12.0-15.5) Hematocrit 32.5% (36.0-47.0) Mean Corpuscular Hemoglobin Concent 33g/dL (31-37) Laboratory Tests Test 07/28/16 03:35 Hemoglobin 10.8g/dL (12.0-15.5) Hematocrit 32.5% (36.0-47.0) Mean Corpuscular Hemoglobin Concent 33g/dL (31-37) Imaging Postop PACU films were reviewed. There is a right hip bipolar hemiarthroplasty in satisfactory position, without any apparent complications. [place] in the skin. Assessment Assessment POD #1 left hip bipolar Left closed clavicle fracture. Problems: Plan Plan of Care Continue arm sling. WBAT with walker. Continue PT/OT. Continue Lovenox for DVT ppx. Dr. Irving saw and examined the patient as well. ROCIO PERES Jul 28, 2016 13:15
[2016-07-28 15:00] VITALS: BP 118/54
[2016-07-28] MEDS ORDERED: BISACODYL 10 MG SUPP.RECT. PR PRN (16:00)
[2016-07-28] MEDS ORDERED: FENTANYL PF 100 MCG/2 ML VIAL. IV PRN (16:00)
[2016-07-28 19:00] VITALS: BP 133/54
[2016-07-28] MEDS: LOSARTAN POTASSIUM 50 MG TABLET. PO SCH (21:02)
[2016-07-28] MEDS: METOPROLOL SUCC 24HR ER 50 MG TAB.ER.24H. PO SCH (21:03)
[2016-07-28 23:07] VITALS: BP 121/49
[2016-07-29 03:06] VITALS: BP 117/51
[2016-07-29] MEDS: LEVOTHYROXINE 125 MCG TABLET PO SCH (06:45)
[2016-07-29 07:00] VITALS: BP 136/66
[2016-07-29] MEDS: INSULIN ASPART 300 UNITS/3 ML INSULN.PEN SQ SCH ×3 (08:00→17:00)
[2016-07-29] MEDS: ENOXAPARIN 40 MG/0.4 ML SYRINGE. SQ SCH (09:34)
[2016-07-29] MEDS: AMLODIPINE BESYLATE 5 MG TABLET PO SCH (09:35)
[2016-07-29] MEDS: SENNOSIDES/DOCUSATE 8.6/50MG TABLET. PO SCH (09:35)
[2016-07-29] MEDS: ACETAMINOPHEN 500 MG TABLET PO SCH ×3 (09:35→21:20)
[2016-07-29] MEDS: MULTIVITAMIN with MINERAL TABLET. PO SCH (09:35)
[2016-07-29] MEDS: CHOLECALCIFEROL (VITAMIN D3) 1,000 UNIT TABLET PO SCH (09:35)
[2016-07-29] MEDS: POLYETHYLENE GLYCOL 3350 17 GM PACKET. PO PRN (10:03)
[2016-07-29 11:00] VITALS: BP 123/66
--- NOTE | 2016-07-29 12:36 | PDOC ---
PROGRESS NOTES Chief Complaint Chief Complaint - L femoral neck fracture, closed and displaced. - L distal clavicle fracture, closed and nondisplaced - hypertension - hypothyroidism History of Present Illness History of Present Illness Patient with no acute events overnight. Pain of R hip, clavicle and ribs persists, but is well controlled. Dressings are clean, dry and intact. Pt feels ready to discharge to nursing home in [place], [place]. discussed case with case preparer and liner. Vitals Vitals Vital Signs Date Time Temp Pulse Resp B/P Pulse Ox O2 Delivery O2 Flow Rate FiO2 07/29/16 11:00 98.2 75 18 123/66 85 Nasal Cannula 3.0 98.2 Physical Exam General: Alert, Oriented X3, Cooperative, No acute distress Heart: Regular rate, Normal S1, Normal S2 Lungs: Clear Abdomen: Soft Extremities: No edema Skin: No rashes, No breakdown Labs LABS Laboratory Tests Test 07/28/16 17:42 07/29/16 12:05 Glucose (Fingerstick) 129mg/dL (70-99) 116mg/dL (70-99) Review of Systems Review of Systems denies fever, chills denies chest pain, shortness of breath pain at R clavicle, ribs, hip appropriately controlled Assessment and Plan Assessmemt and Plan Problems Medical Problems: (1) Fall Status: Acute (2) Hypoxia Status: Acute (3) Injury of clavicle Status: Acute ASSESSMENT: - L femoral neck fracture, closed and displaced. - L distal clavicle fracture, closed and nondisplaced - hypertension - hypothyroidism PLAN: - probable discharge tomorrow to SNU, if ok with ortho - Director Internal Control to SNU eval; pt prefers facility in [place] - cont incentive spirometry - cont pain control - cont wound care - cont home meds - cont DVT prophylaxis - repeat daily labs; watch Hgb - PTOT - appreciate subspecialist input Problems: Comment Review of Relevant I have reviewed the following items jenifer (where applicable) has been applied. Labs Laboratory Tests Test 07/28/16 03:35 07/28/16 17:42 07/29/16 12:05 Hemoglobin 10.8g/dL (12.0-15.5) Hematocrit 32.5% (36.0-47.0) Mean Corpuscular Hemoglobin Concent 33g/dL (31-37) Glucose (Fingerstick) 129mg/dL (70-99) 116mg/dL (70-99) Laboratory Tests Test 07/28/16 17:42 07/29/16 12:05 Glucose (Fingerstick) 129mg/dL (70-99) 116mg/dL (70-99) Microbiology 07/25/16 Urine Culture - Final, Complete 07/25/16 Urine Culture Result 1 (MIRANDA) - Final, Complete 07/25/16 Urine Culture Result 2 (MIRANDA) - Final, Complete Medications Current Medications Acetaminophen (Tylenol) 650 mg 1X ONCE PO Last administered on 07/25/16 22:07 ; Start 07/25/16 at 22:00; Stop 07/25/16 at 22:01; Status DC Metoprolol Tartrate (Lopressor) 50 mg 1X ONCE PO Last administered on 23:43; Start 07/25/16 at 23:30; Stop 07/25/16 at 23:31; Status DC Ondansetron HCl (Zofran) 4 mg PRN Q8HRS PRN IV NAUSEA/VOMITING; Start 07/25/16 at 23:30; Stop 07/26/16 at 09:50; Status DC Acetaminophen (Tylenol) 650 mg PRN Q4HRS PRN PO FEVER Last administered on 07/26 21:11; Start 07/25/16 at 23:30; Stop 07/26/16 at 23:29; Status DC Pneumococcal Polyvalent Vaccine (Do NOT chart on this placeholder) 1 each 1X ONCE MC ; Start 07/26/16 at 03:00; Stop 07/26/16 at 03:01; Status UNV Pneumococcal Polyvalent Vaccine (Pneumovax 23) 0.5 ml ONCE ONCE VAX IM ; Start 07/26/16 at 09:00; Stop 07/26/16 at 09:01; Status DC Tramadol HCl (Ultram) 50 mg PRN Q6HRS PRN PO PAIN Last administered on 21:05; Start 07/26/16 at 03:30 Ondansetron HCl (Zofran) 4 mg PRN Q6HRS PRN IV NAUSEA/VOMITING 1ST CHOICE Last administered on 07/27/16 20:25; Start 07/26/16 at 09:48; Stop 07/28/16 at 14:49 ; Status DC Insulin Aspart (Novolog) 0-9 UNITS TIDWMEALS SQ ; Start 07/26/16 at 12:00 Dextrose 12.5 gm PRN Q15MIN PRN IV SEE COMMENTS; Start 07/26/16 at 10:00 Amlodipine Besylate (Norvasc) 5 mg DAILY PO Last administered on 07/29/16 09: 35; Start 07/26/16 at 10:30 Levothyroxine Sodium (Synthroid) 125 mcg DAILY07 PO Last administered on 06:45; Start 07/26/16 at 10:30 Losartan Potassium (Cozaar) 50 mg HS PO Last administered on 07/28/16 21:02; Start 07/26/16 at 21:00 Metoprolol Succinate 50 mg 50 mg HS PO Last administered on 07/28/16 21:03; Start 07/26/16 at 21:00 Sodium Chloride (Iv Sodium Chloride 0.45%) 1,000 ml @ 100 mls/hr Q10H IV Last administered on 07/27/16 20:26; Start 07/26/16 at 10:00; Stop 07/28/16 at 17:55 ; Status DC Pantoprazole Sodium (Protonix Vial) 40 mg DAILYAC IVP Last administered on 07/28 09:05; Start 07/27/16 at 07:30 Calcium Carbonate/ Glycine 500 mg 500 mg PRN AFTMEALHC PRN PO INDIGESTION Last administered on 07/26/16 15:07; Start 07/26/16 at 14:45 Cefazolin Sodium 50 ml @ 100 mls/hr 1X ONCE IV Last administered on 17:36; Start 07/26/16 at 17:00; Stop 07/26/16 at 17:29; Status DC Clindamycin Phosphate (Cleocin 600 Mg Premix) 50 ml @ 100 mls/hr 1X PREOP PRN IV see comments; Start 07/26/16 at 17:15 Tobramycin Sulfate 1.2 gm 1.2 gm PRN 1X PRN TP FOR SURGERY; Start 07/27/16 at 06:45; Stop 07/27/16 at 09:00; Status DC Tranexamic Acid 1000 mg/Sodium Chloride 60 ml @ 60 mls/hr 1X PERIOP ONCE INJ Last administered on 07/27/16 09:24; Start 07/27/16 at 07:00; Stop 07/27/16 at 07:59; Status DC Tranexamic Acid/ Sodium Chloride (Cyklokapron/Iv Sodium Chloride 0.9% 50ml) 60 ml @ 60 mls/hr 1X PERIOP ONCE INJ Last administered on 07/27/16 09:24; Start 07/27/16 at 09:00; Stop 07/27/16 at 09:59; Status DC Vancomycin HCl 1 gm STK-MED ONCE .ROUTE ; Start 07/27/16 at 06:43; Stop at 06:44; Status DC Tobramycin Sulfate 1.2 gm STK-MED ONCE .ROUTE ; Start 07/27/16 at 06:43; Stop at 06:44; Status DC Epinephrine HCl 30 mg 30 mg STK-MED ONCE .ROUTE ; Start 07/27/16 at 06:43; Stop 07/27/16 at 06:44; Status DC Morphine Sulfate/ Ketorolac Tromethamine/ Ropivacaine/ Epinephrine HCl/ Sodium Chloride (Morphine 5mg Syringe/Toradol/ Naropin 0.5%/ Adrenalin/Iv Sodium Chloride 0.9% 100ml) 100.5 ml @ 100.5 mls/ hr 1X PERIOP ONCE INT ART Last administered on 07/27/16 09:24; Start 07/27/16 at 07:00; Stop 07/27/16 at 07:59 ; Status DC Fentanyl Citrate 250 mcg 250 mcg STK-MED ONCE .ROUTE ; Start 07/27/16 at 07:32; Stop 07/27/16 at 07:33; Status DC Propofol (Diprivan) 20 ml @ As Directed STK-MED ONCE IV ; Start 07/27/16 at 07: 32; Stop 07/27/16 at 07:33; Status DC Dexamethasone Sodium Phosphate (Decadron) 20 mg STK-MED ONCE .ROUTE ; Start at 07:32; Stop 07/27/16 at 07:33; Status DC Ondansetron HCl (Zofran) 4 mg STK-MED ONCE .ROUTE ; Start 07/27/16 at 07:32; Stop 07/27/16 at 07:33; Status DC Lidocaine HCl 100 mg STK-MED ONCE .ROUTE ; Start 07/27/16 at 07:32; Stop at 07:33; Status DC Ondansetron HCl (Zofran) 4 mg PRN Q6HRS PRN IV Nausea; Start 07/27/16 at 08:15 ; Stop 07/28/16 at 08:14; Status DC Fentanyl Citrate (Fentanyl 2ml Vial) 25 mcg PRN Q5MIN PRN IV MILD PAIN; Start 07/27/16 at 08:15; Stop 07/28/16 at 08:14; Status DC Fentanyl Citrate (Fentanyl 2ml Vial) 50 mcg PRN Q5MIN PRN IV MODERATE PAIN; Start 07/27/16 at 08:15; Stop 07/28/16 at 08:14; Status DC Morphine Sulfate 1 mg 1 mg PRN Q10MIN PRN IV SEVERE PAIN; Start 07/27/16 at 08: 15; Stop 07/28/16 at 08:14; Status DC Lactated Ringer's (Iv Lactated Ringers) 1,000 ml @ 0 mls/hr Q0M IV ; Start at 08:05; Stop 07/27/16 at 20:04; Status DC Lidocaine HCl 2 ml 1X PRN PRN ID IV START; Start 07/27/16 at 08:15; Stop at 08:14; Status DC Hydromorphone HCl (Dilaudid) 0.5 mg PRN Q10MIN PRN IV SEV PAIN,Second choice; Start 07/27/16 at 08:15; Stop 07/28/16 at 08:14; Status DC Prochlorperazine Edisylate (Compazine) 5 mg PACU PRN PRN IV NAUSEA Last administered on 07/27/16t 11:06; Start 07/27/16 at 08:15; Stop 07/28/16 at 08:14 ; Status DC Phenylephrine HCl 1 mg STK-MED ONCE IV ; Start 07/27/16 at 09:30; Stop 07/27/16 at 09:31; Status DC Sevoflurane 90 ml 90 ml STK-MED ONCE IH ; Start 07/27/16 at 09:30; Stop at 09:31; Status DC Cefazolin Sodium/ Dextrose (Ancef 2gm Premix) 50 ml @ 100 mls/hr 1X ONCE IV Last administered on 07/27/16 09:06; Start 07/27/16 at 09:45; Stop 07/27/16 at 10:14; Status DC Vancomycin HCl 1 gm STK-MED ONCE .ROUTE ; Start 07/27/16 at 10:02; Stop at 10:03; Status DC Tobramycin Sulfate 1.2 gm STK-MED ONCE .ROUTE ; Start 07/27/16 at 10:02; Stop at 10:03; Status DC Morphine Sulfate (Morphine Preservative Free) 5 mg STK-MED ONCE .ROUTE ; Start 07/27/16 at 10:30; Stop 07/27/16 at 10:31; Status DC Oxycodone HCl (Roxicodone) 5 mg PRN Q3HRS PRN PO PAIN; Start 07/27/16 at 10:45 Morphine Sulfate 2 mg PRN Q1HR PRN IV PAIN; Start 07/27/16 at 10:45 Fentanyl Citrate (Fentanyl 2ml Vial) 25 mcg PRN Q1HR PRN IV PAIN Last administered on 07/28/16 14:06; Start 07/27/16 at 10:45; Stop 07/28/16 at 15:35 ; Status DC Acetaminophen (Tylenol) 500 mg TID PO Last administered on 07/29/16 09:35; Start 07/27/16 at 14:00 Multivitamins (Thera M Plus) 1 tab DAILY PO Last administered on 07/29/16 09: 35; Start 07/28/16 at 09:00 Senna/Docusate Sodium (Senna Plus) 1 tab DAILY PO Last administered on 09:35; Start 07/28/16 at 09:00 Polyethylene Glycol (miraLAX PACKET) 17 gm PRN DAILY PRN PO CONSTIPATION Last administered on 07/29/16 10:03; Start 07/27/16 at 10:45 Vitamin D 1000 unit 1,000 unit DAILY PO Last administered on 07/29/16 09:35; Start 07/28/16 at 09:00 Sodium Chloride (Iv Sodium Chloride 0.45%) 1,000 ml @ 75 mls/hr [id number] IV ; Start 07/27/16 at 10:44; Stop 07/27/16 at 20:39; Status DC Ondansetron HCl (Zofran) 4 mg PRN Q4HRS PRN IV NAUSEA/VOMITING; Start 07/27/16 at 10:45 Aspirin (William Aspirin) 325 mg BID PO ; Start 07/27/16 at 21:00; Status UNV Magnesium Hydroxide (Milk Of Magnesia) 2,400 mg 1X PRN PRN PO CONSTIPATION Last administered on 07/28/16 21:55; Start 07/28/16 at 06:00; Stop 07/29/16 at 05:59; Status DC Bisacodyl (Dulcolax Supp) 10 mg 1X PRN PRN NE CONSTIPATION; Start 07/28/16 at 16:00; Stop 07/29/16 at 15:59 Acetaminophen/ Hydrocodone Bitart (Lortab 7.5/325) 1 tab PRN Q4HRS PRN PO PAIN ; Start 07/27/16 at 10:45 Morphine Sulfate 4 mg PRN Q2HR PRN IV PAIN; Start 07/27/16 at 10:45 Acetaminophen/ Hydrocodone Bitart (Lortab 7.5/325) 2 tab PRN Q4HRS PRN PO PAIN ; Start 07/27/16 at 10:45 Dextrose 12.5 gm 12.5 gm PRN Q15MIN PRN IV SEE COMMENTS; Start 07/27/16 at 10: 45; Stop 07/28/16 at 14:49; Status DC Cefazolin Sodium/ Dextrose 50 ml @ 100 mls/hr Q6H IV ; Start 07/27/16 at 11:00 ; Stop 07/27/16 at 23:29; Status UNV Clindamycin Phosphate (Cleocin 600 Mg Premix) 50 ml @ 100 mls/hr Q6H IV Last administered on 07/28/16 03:17; Start 07/27/16 at 15:00; Stop 07/28/16 at 03:29 ; Status DC Albuterol Sulfate (Ventolin Neb Soln) 2.5 mg 1X ONCE NEB Last administered on 07/27/16 12:01; Start 07/27/16 at 11:45; Stop 07/27/16 at 11:56; Status DC Enoxaparin Sodium (Lovenox 40mg Syringe) 40 mg Q24H SQ Last administered on 09:34; Start 07/28/16 at 08:00 Albuterol Sulfate (Ventolin Neb Soln) 2.5 mg PRN QID PRN NEB WHEEZING Last administered on 07/28/16t 11:06; Start 07/28/16 at 09:45 Fentanyl Citrate (Fentanyl 2ml Vial) 25 mcg PRN Q4HRS PRN IV PAIN; Start at 16:00 Active Scripts Active Reported Toprol Xl (Metoprolol Succinate) 50 Mg Tab.er.24h 1 Tab PO HS Losartan Potassium 50 Mg Tablet 50 Mg PO HS Norvasc (Amlodipine Besylate) 5 Mg Tablet 1 Tab PO DAILY Levothyroxine Sodium 125 Mcg Tablet 1 Tab PO DAILY Vitals/I & O Vital Sign - Last 24 Hours 07/28/16 07/28/16 07/28/16 07/28/16 14:06 14:06 14:36 15:00 Temp 96.8 96.8 Pulse 76 Resp 18 20 B/P 118/54 Pulse Ox 90 90 O2 Delivery Room Air Nasal Cannula O2 Flow Rate 4.0 5.0 07/28/16 07/28/16 07/28/16 07/28/16 15:23 19:00 20:00 21:02 Temp 98.6 98.6 Pulse 91 91 Resp 18 18 B/P 133/54 133/54 Pulse Ox 90 O2 Delivery Nasal Cannula Nasal Cannula O2 Flow Rate 5.0 4.0 07/28/16 07/28/16 07/28/16 07/29/16 21:03 21:05 23:07 03:06 Temp 98.2 98.4 98.2 98.4 Pulse 91 85 78 Resp 18 B/P 133/54 121/49 117/51 Pulse Ox 90 86 88 O2 Delivery Nasal Cannula Nasal Cannula Nasal Cannula O2 Flow Rate 4.0 5.0 5.0 07/29/16 07/29/16 07/29/16 07:00 09:35 11:00 Temp 97.9 98.2 97.9 98.2 Pulse 78 78 75 Resp 16 18 B/P 136/66 136/66 123/66 Pulse Ox 87 85 O2 Delivery Nasal Cannula Nasal Cannula O2 Flow Rate 5.0 3.0 Intake and Output 07/28/16 07/28/16 07/29/16 15:00 23:00 07:00 Intake Total 500 ml Output Total 750 ml 350 ml Balance 500 ml -750 ml -350 ml LADAN MIGUEL III DO Jul 29, 2016 12:36
--- NOTE | 2016-07-29 14:59 | PDOC ---
PROGRESS NOTES Subjective Subjective Pain is controlled. Objective Vital Signs Vital Signs Date Time Temp Pulse Resp B/P Pulse Ox O2 Delivery O2 Flow Rate FiO2 07/29/16 11:00 98.2 75 18 123/66 85 Nasal Cannula 3.0 98.2 Physical Exam Sitting up in bed with family at bedside. Ice pack to left shoulder. Left hip dressing dry and intact. Calf soft and nontender, with a negative Georgette's sign. Gentle circumduction of the hip is not painful. Good dorsiflexion and plantarflexion. NVI. Labs Laboratory Tests Test 07/28/16 03:35 07/28/16 17:42 07/29/16 12:05 Hemoglobin 10.8g/dL (12.0-15.5) Hematocrit 32.5% (36.0-47.0) Mean Corpuscular Hemoglobin Concent 33g/dL (31-37) Glucose (Fingerstick) 129mg/dL (70-99) 116mg/dL (70-99) Laboratory Tests Test 07/28/16 17:42 07/29/16 12:05 Glucose (Fingerstick) 129mg/dL (70-99) 116mg/dL (70-99) Assessment Assessment POD #2 left hip bipolar Problems: Plan Plan of Care Continue PT/OT. She may WBAT with a walker. Continue abduction pillow and hip precautions. ROCIO PERES Jul 29, 2016 14:59
[2016-07-29 15:00] VITALS: BP 122/50
[2016-07-29 19:00] VITALS: BP 134/56
[2016-07-29] MEDS ORDERED: BISACODYL 10 MG SUPP.RECT. PR ONE (20:15)
[2016-07-29] MEDS: LOSARTAN POTASSIUM 50 MG TABLET. PO SCH (21:00)
[2016-07-29] MEDS: METOPROLOL SUCC 24HR ER 50 MG TAB.ER.24H. PO SCH (21:20)
[2016-07-29 23:00] VITALS: BP 124/56
[2016-07-30 03:00] VITALS: BP 135/70
[2016-07-30 05:30] LABS: BASO % 0 % (0-3); EOS % 6 % (0-3); HEMATOCRIT 31.2 % (36.0-47.0); HEMOGLOBIN 10.3 g/dL (12.0-15.5); LYMPH # 0.9 x10^3/uL (1.0-4.8); LYMPH % 12 % (24-48); MEAN CORPUSCULAR HEMOGLOBIN 30 pg (25-35); MEAN CORPUSCULAR HGB CONC 33 g/dL (31-37); MEAN CORPUSCULAR VOLUME 90 fL (79-100); MONO % 13 % (0-9); NEUT % 69 % (31-73); PLATELET COUNT 142 x10^3/uL (140-400); RED BLOOD COUNT 3.48 x10^6/uL (3.50-5.40); RED CELL DISTRIBUTION WIDTH 14.4 % (11.5-14.5); WHITE BLOOD COUNT 7.3 x10^3/uL (4.0-11.0)
[2016-07-30 05:45] LABS: CALCIUM 8.2 mg/dL (8.5-10.1); CREATININE 0.8 mg/dL (0.6-1.0); GFR 67.8; POTASSIUM 4.1 mmol/L (3.5-5.1)
[2016-07-30] MEDS: LEVOTHYROXINE 125 MCG TABLET PO SCH (06:40)
[2016-07-30 07:00] VITALS: BP 144/69
[2016-07-30] MEDS ORDERED: PANTOPRAZOLE 40 MG TABLET. PO SCH (07:30)
[2016-07-30] MEDS: INSULIN ASPART 300 UNITS/3 ML INSULN.PEN SQ SCH (08:00)
[2016-07-30] MEDS: SENNOSIDES/DOCUSATE 8.6/50MG TABLET. PO SCH (09:27)
[2016-07-30] MEDS: MULTIVITAMIN with MINERAL TABLET. PO SCH (09:27)
[2016-07-30] MEDS: CHOLECALCIFEROL (VITAMIN D3) 1,000 UNIT TABLET PO SCH (09:27)
[2016-07-30] MEDS: AMLODIPINE BESYLATE 5 MG TABLET PO SCH (09:28)
[2016-07-30] MEDS: ACETAMINOPHEN 500 MG TABLET PO SCH (09:28)
[2016-07-30] MEDS: ENOXAPARIN 40 MG/0.4 ML SYRINGE. SQ SCH (09:29)
--- NOTE | 2016-07-30 10:53 | PATHOLOGY ---
PATHOLOGY REPORT * * * * * * * * FINAL DIAGNOSIS: Femoral head, left hip bipolar hemiarthroplasty: - Focal fragmentation of bony trabeculae and recent intertrabecular hemorrhage consistent with fracture. - Degenerative arthritis. COMMENT: There is no evidence of malignancy. (JPM:; d/t: 07/30/16) REPORT ELECTRONICALLY SIGNED BY: Larry Lomax M.D. DATE/TIME: 07/30/2016 10:52 * * * * * * * * GROSS PATHOLOGY: Received in formalin labeled "Susan Fay, left hip bone and tissue," is a femoral head measuring 4.5 x 4.5 x 3.8 cm in greatest dimensions. The articular surface is pale coffey to light coffey and smooth in appearance. Sectioning reveals a white-coffey marrow space, with the distal most aspect hemorrhagic in appearance, consistent with a fracture site. Emr Analyst tissue from the fracture site is submitted in cassette A1, following decalcification. (CAA; 07/29/2016) INITIAL CPT CODE(S): A; 32061, 77506 Professional services performed by [facility] [place] [address] Technical services performed by [facility] at [address] [place] [address]. SPECIMEN(S) RECEIVED: A.Left hip bone and tissue CLINICAL HISTORY: Left hip fracture PATIENT: SUSAN FAY /AGE: 8 1930 (Age: 85) PATIENT #: [id number] ALT CASE #: SPECIMEN COLLECTION DATE: 07/27/2016 SPECIMEN RECEIVED DATE: 07/28/2016 [facility] - [address] [place] [address] - PHONE: [phone] * * * END OF REPORT * * *
[2016-07-30 11:00] VITALS: BP 144/63
--- NOTE | 2016-07-30 12:47 | PDOC ---
PROGRESS NOTES Chief Complaint Chief Complaint - L femoral neck fracture, closed and displaced. - L distal clavicle fracture, closed and nondisplaced - hypertension - hypothyroidism History of Present Illness History of Present Illness Patient with no acute events overnight. Family and friends at bedside. Pain of R hip, clavicle and ribs persists, but is well controlled. Dressings are clean, dry and intact. Pt ready for discharge to SNU; [facility] in [place], [place]. Discussed case with RN and daughter. Explained need for rehab to daughter, who agrees with the plan. Vitals Vitals Vital Signs Date Time Temp Pulse Resp B/P Pulse Ox O2 Delivery O2 Flow Rate FiO2 07/30/16 09:28 78 144/69 07/30/16 08:00 Nasal Cannula 3.0 07/30/16 07:00 97.7 22 90 97.7 Physical Exam General: Alert, Oriented X3, Cooperative, No acute distress Heart: Regular rate, Normal S1, Normal S2 Lungs: Clear Abdomen: Soft Extremities: No edema Skin: No rashes, No breakdown Labs LABS Laboratory Tests Test 07/29/16 17:54 07/30/16 04:30 Glucose (Fingerstick) 102mg/dL (70-99) White Blood Count 7.3x10^3/uL (4.0-11.0) Red Blood Count 3.48x10^6/uL (3.50-5.40) Hemoglobin 10.3g/dL (12.0-15.5) Hematocrit 31.2% (36.0-47.0) Mean Corpuscular Volume 90fL (79-100) Mean Corpuscular Hemoglobin 30pg (25-35) Mean Corpuscular Hemoglobin Concent 33g/dL (31-37) Red Cell Distribution Width 14.4% (11.5-14.5) Platelet Count 142x10^3/uL (140-400) Neutrophils (%) (Auto) 69% (31-73) Lymphocytes (%) (Auto) 12% (24-48) Monocytes (%) (Auto) 13% (0-9) Eosinophils (%) (Auto) 6% (0-3) Basophils (%) (Auto) 0% (0-3) Neutrophils # (Auto) 5.0x10^3uL (1.8-7.7) Lymphocytes # (Auto) 0.9x10^3/uL (1.0-4.8) Monocytes # (Auto) 0.9x10^3/uL (0.0-1.1) Eosinophils # (Auto) 0.4x10^3/uL (0.0-0.7) Basophils # (Auto) 0.0x10^3/uL (0.0-0.2) Sodium Level 135mmol/L (136-145) Potassium Level 4.1mmol/L (3.5-5.1) Chloride Level 100mmol/L (98-107) Carbon Dioxide Level 25mmol/L (21-32) Anion Gap 10 (6-14) Blood Urea Nitrogen 17mg/dL (7-20) Creatinine 0.8mg/dL (0.6-1.0) Estimated GFR (Cockcroft-Gault) 67.8 Glucose Level 107mg/dL (70-99) Calcium Level 8.2mg/dL (8.5-10.1) Review of Systems Review of Systems denies fever, chills pain at R clavicle, ribs, hip appropriately controlled Assessment and Plan Assessmemt and Plan Problems Medical Problems: (1) Fall Status: Acute (2) Hypoxia Status: Acute (3) Injury of clavicle Status: Acute ASSESSMENT: - L femoral neck fracture, closed and displaced. - L distal clavicle fracture, closed and nondisplaced - hypertension - hypothyroidism PLAN: - probable discharge today to SNU; [facility] in [place] - cont home meds - cont pain control - cont wound care - appreciate subspecialist input Problems: Comment Review of Relevant I have reviewed the following items jenifer (where applicable) has been applied. Labs Laboratory Tests Test 07/28/16 17:42 07/29/16 12:05 07/29/16 17:54 07/30/16 04:30 Glucose (Fingerstick) 129mg/dL (70-99) 116mg/dL (70-99) 102mg/dL (70-99) White Blood Count 7.3x10^3/uL (4.0-11.0) Red Blood Count 3.48x10^6/uL (3.50-5.40) Hemoglobin 10.3g/dL (12.0-15.5) Hematocrit 31.2% (36.0-47.0) Mean Corpuscular Volume 90fL (79-100) Mean Corpuscular Hemoglobin 30pg (25-35) Mean Corpuscular Hemoglobin Concent 33g/dL (31-37) Red Cell Distribution Width 14.4% (11.5-14.5) Platelet Count 142x10^3/uL (140-400) Neutrophils (%) (Auto) 69% (31-73) Lymphocytes (%) (Auto) 12% (24-48) Monocytes (%) (Auto) 13% (0-9) Eosinophils (%) (Auto) 6% (0-3) Basophils (%) (Auto) 0% (0-3) Neutrophils # (Auto) 5.0x10^3uL (1.8-7.7) Lymphocytes # (Auto) 0.9x10^3/uL (1.0-4.8) Monocytes # (Auto) 0.9x10^3/uL (0.0-1.1) Eosinophils # (Auto) 0.4x10^3/uL (0.0-0.7) Basophils # (Auto) 0.0x10^3/uL (0.0-0.2) Sodium Level 135mmol/L (136-145) Potassium Level 4.1mmol/L (3.5-5.1) Chloride Level 100mmol/L (98-107) Carbon Dioxide Level 25mmol/L (21-32) Anion Gap 10 (6-14) Blood Urea Nitrogen 17mg/dL (7-20) Creatinine 0.8mg/dL (0.6-1.0) Estimated GFR (Cockcroft-Gault) 67.8 Glucose Level 107mg/dL (70-99) Calcium Level 8.2mg/dL (8.5-10.1) Laboratory Tests Test 07/29/16 17:54 07/30/16 04:30 Glucose (Fingerstick) 102mg/dL (70-99) White Blood Count 7.3x10^3/uL (4.0-11.0) Red Blood Count 3.48x10^6/uL (3.50-5.40) Hemoglobin 10.3g/dL (12.0-15.5) Hematocrit 31.2% (36.0-47.0) Mean Corpuscular Volume 90fL (79-100) Mean Corpuscular Hemoglobin 30pg (25-35) Mean Corpuscular Hemoglobin Concent 33g/dL (31-37) Red Cell Distribution Width 14.4% (11.5-14.5) Platelet Count 142x10^3/uL (140-400) Neutrophils (%) (Auto) 69% (31-73) Lymphocytes (%) (Auto) 12% (24-48) Monocytes (%) (Auto) 13% (0-9) Eosinophils (%) (Auto) 6% (0-3) Basophils (%) (Auto) 0% (0-3) Neutrophils # (Auto) 5.0x10^3uL (1.8-7.7) Lymphocytes # (Auto) 0.9x10^3/uL (1.0-4.8) Monocytes # (Auto) 0.9x10^3/uL (0.0-1.1) Eosinophils # (Auto) 0.4x10^3/uL (0.0-0.7) Basophils # (Auto) 0.0x10^3/uL (0.0-0.2) Sodium Level 135mmol/L (136-145) Potassium Level 4.1mmol/L (3.5-5.1) Chloride Level 100mmol/L (98-107) Carbon Dioxide Level 25mmol/L (21-32) Anion Gap 10 (6-14) Blood Urea Nitrogen 17mg/dL (7-20) Creatinine 0.8mg/dL (0.6-1.0) Estimated GFR (Cockcroft-Gault) 67.8 Glucose Level 107mg/dL (70-99) Calcium Level 8.2mg/dL (8.5-10.1) Microbiology 07/25/16 Urine Culture - Final, Complete 07/25/16 Urine Culture Result 1 (MIRANDA) - Final, Complete 07/25/16 Urine Culture Result 2 (MIRANDA) - Final, Complete Medications Current Medications Acetaminophen (Tylenol) 650 mg 1X ONCE PO Last administered on 07/25/16 22:07 ; Start 07/25/16 at 22:00; Stop 07/25/16 at 22:01; Status DC Metoprolol Tartrate (Lopressor) 50 mg 1X ONCE PO Last administered on 23:43; Start 07/25/16 at 23:30; Stop 07/25/16 at 23:31; Status DC Ondansetron HCl (Zofran) 4 mg PRN Q8HRS PRN IV NAUSEA/VOMITING; Start 07/25/16 at 23:30; Stop 07/26/16 at 09:50; Status DC Acetaminophen (Tylenol) 650 mg PRN Q4HRS PRN PO FEVER Last administered on 07/26 21:11; Start 07/25/16 at 23:30; Stop 07/26/16 at 23:29; Status DC Pneumococcal Polyvalent Vaccine (Do NOT chart on this placeholder) 1 each 1X ONCE MC ; Start 07/26/16 at 03:00; Stop 07/26/16 at 03:01; Status UNV Pneumococcal Polyvalent Vaccine (Pneumovax 23) 0.5 ml ONCE ONCE VAX IM ; Start 07/26/16 at 09:00; Stop 07/26/16 at 09:01; Status DC Tramadol HCl (Ultram) 50 mg PRN Q6HRS PRN PO PAIN Last administered on 21:05; Start 07/26/16 at 03:30 Ondansetron HCl (Zofran) 4 mg PRN Q6HRS PRN IV NAUSEA/VOMITING 1ST CHOICE Last administered on 07/27/16 20:25; Start 07/26/16 at 09:48; Stop 07/28/16 at 14:49 ; Status DC Insulin Aspart (Novolog) 0-9 UNITS TIDWMEALS SQ ; Start 07/26/16 at 12:00 Dextrose 12.5 gm PRN Q15MIN PRN IV SEE COMMENTS; Start 07/26/16 at 10:00 Amlodipine Besylate (Norvasc) 5 mg DAILY PO Last administered on 07/30/16 09: 28; Start 07/26/16 at 10:30 Levothyroxine Sodium (Synthroid) 125 mcg DAILY07 PO Last administered on 06:40; Start 07/26/16 at 10:30 Losartan Potassium (Cozaar) 50 mg HS PO Last administered on 07/29/16 21:00; Start 07/26/16 at 21:00 Metoprolol Succinate 50 mg 50 mg HS PO Last administered on 07/29/16 21:20; Start 07/26/16 at 21:00 Sodium Chloride (Iv Sodium Chloride 0.45%) 1,000 ml @ 100 mls/hr Q10H IV Last administered on 07/27/16 20:26; Start 07/26/16 at 10:00; Stop 07/28/16 at 17:55 ; Status DC Pantoprazole Sodium (Protonix Vial) 40 mg DAILYAC IVP Last administered on 07/28 09:05; Start 07/27/16 at 07:30; Stop 07/29/16 at 13:06; Status DC Calcium Carbonate/ Glycine 500 mg 500 mg PRN AFTMEALHC PRN PO INDIGESTION Last administered on 07/26/16 15:07; Start 07/26/16 at 14:45 Cefazolin Sodium 50 ml @ 100 mls/hr 1X ONCE IV Last administered on 17:36; Start 07/26/16 at 17:00; Stop 07/26/16 at 17:29; Status DC Clindamycin Phosphate (Cleocin 600 Mg Premix) 50 ml @ 100 mls/hr 1X PREOP PRN IV see comments; Start 07/26/16 at 17:15; Stop 07/29/16 at 13:01; Status DC Tobramycin Sulfate 1.2 gm 1.2 gm PRN 1X PRN TP FOR SURGERY; Start 07/27/16 at 06:45; Stop 07/27/16 at 09:00; Status DC Tranexamic Acid 1000 mg/Sodium Chloride 60 ml @ 60 mls/hr 1X PERIOP ONCE INJ Last administered on 07/27/16 09:24; Start 07/27/16 at 07:00; Stop 07/27/16 at 07:59; Status DC Tranexamic Acid/ Sodium Chloride (Cyklokapron/Iv Sodium Chloride 0.9% 50ml) 60 ml @ 60 mls/hr 1X PERIOP ONCE INJ Last administered on 07/27/16 09:24; Start 07/27/16 at 09:00; Stop 07/27/16 at 09:59; Status DC Vancomycin HCl 1 gm STK-MED ONCE .ROUTE ; Start 07/27/16 at 06:43; Stop at 06:44; Status DC Tobramycin Sulfate 1.2 gm STK-MED ONCE .ROUTE ; Start 07/27/16 at 06:43; Stop at 06:44; Status DC Epinephrine HCl 30 mg 30 mg STK-MED ONCE .ROUTE ; Start 07/27/16 at 06:43; Stop 07/27/16 at 06:44; Status DC Morphine Sulfate/ Ketorolac Tromethamine/ Ropivacaine/ Epinephrine HCl/ Sodium Chloride (Morphine 5mg Syringe/Toradol/ Naropin 0.5%/ Adrenalin/Iv Sodium Chloride 0.9% 100ml) 100.5 ml @ 100.5 mls/ hr 1X PERIOP ONCE INT ART Last administered on 07/27/16t 09:24; Start 07/27/16 at 07:00; Stop 07/27/16 at 07:59 ; Status DC Fentanyl Citrate 250 mcg 250 mcg STK-MED ONCE .ROUTE ; Start 07/27/16 at 07:32; Stop 07/27/16 at 07:33; Status DC Propofol (Diprivan) 20 ml @ As Directed STK-MED ONCE IV ; Start 07/27/16 at 07: 32; Stop 07/27/16 at 07:33; Status DC Dexamethasone Sodium Phosphate (Decadron) 20 mg STK-MED ONCE .ROUTE ; Start at 07:32; Stop 07/27/16 at 07:33; Status DC Ondansetron HCl (Zofran) 4 mg STK-MED ONCE .ROUTE ; Start 07/27/16 at 07:32; Stop 07/27/16 at 07:33; Status DC Lidocaine HCl 100 mg STK-MED ONCE .ROUTE ; Start 07/27/16 at 07:32; Stop at 07:33; Status DC Ondansetron HCl (Zofran) 4 mg PRN Q6HRS PRN IV Nausea; Start 07/27/16 at 08:15 ; Stop 07/28/16 at 08:14; Status DC Fentanyl Citrate (Fentanyl 2ml Vial) 25 mcg PRN Q5MIN PRN IV MILD PAIN; Start 07/27/16 at 08:15; Stop 07/28/16 at 08:14; Status DC Fentanyl Citrate (Fentanyl 2ml Vial) 50 mcg PRN Q5MIN PRN IV MODERATE PAIN; Start 07/27/16 at 08:15; Stop 07/28/16 at 08:14; Status DC Morphine Sulfate 1 mg 1 mg PRN Q10MIN PRN IV SEVERE PAIN; Start 07/27/16 at 08: 15; Stop 07/28/16 at 08:14; Status DC Lactated Ringer's (Iv Lactated Ringers) 1,000 ml @ 0 mls/hr Q0M IV ; Start at 08:05; Stop 07/27/16 at 20:04; Status DC Lidocaine HCl 2 ml 1X PRN PRN ID IV START; Start 07/27/16 at 08:15; Stop at 08:14; Status DC Hydromorphone HCl (Dilaudid) 0.5 mg PRN Q10MIN PRN IV SEV PAIN,Second choice; Start 07/27/16 at 08:15; Stop 07/28/16 at 08:14; Status DC Prochlorperazine Edisylate (Compazine) 5 mg PACU PRN PRN IV NAUSEA Last administered on 07/27/16t 11:06; Start 07/27/16 at 08:15; Stop 07/28/16 at 08:14 ; Status DC Phenylephrine HCl 1 mg STK-MED ONCE IV ; Start 07/27/16 at 09:30; Stop 07/27/16 at 09:31; Status DC Sevoflurane 90 ml 90 ml STK-MED ONCE IH ; Start 07/27/16 at 09:30; Stop at 09:31; Status DC Cefazolin Sodium/ Dextrose (Ancef 2gm Premix) 50 ml @ 100 mls/hr 1X ONCE IV Last administered on 07/27/16 09:06; Start 07/27/16 at 09:45; Stop 07/27/16 at 10:14; Status DC Vancomycin HCl 1 gm STK-MED ONCE .ROUTE ; Start 07/27/16 at 10:02; Stop at 10:03; Status DC Tobramycin Sulfate 1.2 gm STK-MED ONCE .ROUTE ; Start 07/27/16 at 10:02; Stop at 10:03; Status DC Morphine Sulfate (Morphine Preservative Free) 5 mg STK-MED ONCE .ROUTE ; Start 07/27/16 at 10:30; Stop 07/27/16 at 10:31; Status DC Oxycodone HCl (Roxicodone) 5 mg PRN Q3HRS PRN PO PAIN; Start 07/27/16 at 10:45 Morphine Sulfate 2 mg PRN Q1HR PRN IV PAIN; Start 07/27/16 at 10:45 Fentanyl Citrate (Fentanyl 2ml Vial) 25 mcg PRN Q1HR PRN IV PAIN Last administered on 07/28/16 14:06; Start 07/27/16 at 10:45; Stop 07/28/16 at 15:35 ; Status DC Acetaminophen (Tylenol) 500 mg TID PO Last administered on 07/30/16 09:28; Start 07/27/16 at 14:00 Multivitamins (Thera M Plus) 1 tab DAILY PO Last administered on 07/30/16 09: 27; Start 07/28/16 at 09:00 Senna/Docusate Sodium (Senna Plus) 1 tab DAILY PO Last administered on 09:27; Start 07/28/16 at 09:00 Polyethylene Glycol (miraLAX PACKET) 17 gm PRN DAILY PRN PO CONSTIPATION Last administered on 07/29/16 10:03; Start 07/27/16 at 10:45 Vitamin D 1000 unit 1,000 unit DAILY PO Last administered on 07/30/16 09:27; Start 07/28/16 at 09:00 Sodium Chloride (Iv Sodium Chloride 0.45%) 1,000 ml @ 75 mls/hr [id number] IV ; Start 07/27/16 at 10:44; Stop 07/27/16 at 20:39; Status DC Ondansetron HCl (Zofran) 4 mg PRN Q4HRS PRN IV NAUSEA/VOMITING; Start 07/27/16 at 10:45 Aspirin (William Aspirin) 325 mg BID PO ; Start 07/27/16 at 21:00; Status UNV Magnesium Hydroxide (Milk Of Magnesia) 2,400 mg 1X PRN PRN PO CONSTIPATION Last administered on 07/28/16 21:55; Start 07/28/16 at 06:00; Stop 07/29/16 at 05:59; Status DC Bisacodyl (Dulcolax Supp) 10 mg 1X PRN PRN [place] CONSTIPATION; Start 07/28/16 at 16:00; Stop 07/29/16 at 15:59; Status DC Acetaminophen/ Hydrocodone Bitart (Lortab 7.5/325) 1 tab PRN Q4HRS PRN PO PAIN ; Start 07/27/16 at 10:45 Morphine Sulfate 4 mg PRN Q2HR PRN IV PAIN; Start 07/27/16 at 10:45 Acetaminophen/ Hydrocodone Bitart (Lortab 7.5/325) 2 tab PRN Q4HRS PRN PO PAIN ; Start 07/27/16 at 10:45 Dextrose 12.5 gm 12.5 gm PRN Q15MIN PRN IV SEE COMMENTS; Start 07/27/16 at 10: 45; Stop 07/28/16 at 14:49; Status DC Cefazolin Sodium/ Dextrose 50 ml @ 100 mls/hr Q6H IV ; Start 07/27/16 at 11:00 ; Stop 07/27/16 at 23:29; Status UNV Clindamycin Phosphate (Cleocin 600 Mg Premix) 50 ml @ 100 mls/hr Q6H IV Last administered on 07/28/16 03:17; Start 07/27/16 at 15:00; Stop 07/28/16 at 03:29 ; Status DC Albuterol Sulfate (Ventolin Neb Soln) 2.5 mg 1X ONCE NEB Last administered on 07/27/16 12:01; Start 07/27/16 at 11:45; Stop 07/27/16 at 11:56; Status DC Enoxaparin Sodium (Lovenox 40mg Syringe) 40 mg Q24H SQ Last administered on 09:29; Start 07/28/16 at 08:00 Albuterol Sulfate (Ventolin Neb Soln) 2.5 mg PRN QID PRN NEB WHEEZING Last administered on 07/28/16 11:06; Start 07/28/16 at 09:45 Fentanyl Citrate (Fentanyl 2ml Vial) 25 mcg PRN Q4HRS PRN IV PAIN; Start at 16:00 Pantoprazole Sodium (Protonix) 40 mg DAILYAC PO Last administered on 07/30/16 09:27; Start 07/30/16 at 07:30 Bisacodyl (Dulcolax Supp) 10 mg 1X ONCE [place] Last administered on 3/28/17at 21: 10; Start 07/29/16 at 20:15; Stop 07/29/16 at 20:16; Status DC Active Scripts Active Reported Toprol Xl (Metoprolol Succinate) 50 Mg Tab.er.24h 1 Tab PO HS Losartan Potassium 50 Mg Tablet 50 Mg PO HS Norvasc (Amlodipine Besylate) 5 Mg Tablet 1 Tab PO DAILY Levothyroxine Sodium 125 Mcg Tablet 1 Tab PO DAILY Vitals/I & O Vital Sign - Last 24 Hours 07/29/16 07/29/16 07/29/16 07/29/16 15:00 19:00 20:00 21:00 Temp 97.0 97.9 97.0 97.9 Pulse 74 77 77 Resp 18 20 B/P 122/50 134/56 134/56 Pulse Ox 91 90 O2 Delivery Nasal Cannula Nasal Cannula Nasal Cannula O2 Flow Rate 3.0 3.0 3.0 07/29/16 07/29/16 07/30/16 07/30/16 21:20 23:00 03:00 07:00 Temp 98.8 97.9 97.7 98.8 97.9 97.7 Pulse 77 90 82 78 Resp 20 20 22 B/P 124/56 135/70 144/69 Pulse Ox 90 89 90 O2 Delivery Nasal Cannula Nasal Cannula Nasal Cannula O2 Flow Rate 3.0 3.0 3.0 07/30/16 07/30/16 08:00 09:28 Pulse 78 B/P 144/69 O2 Delivery Nasal Cannula O2 Flow Rate 3.0 Intake and Output 07/29/16 07/29/16 07/30/16 15:00 23:00 07:00 Intake Total 0 ml Output Total 650 ml Balance 0 ml -650 ml LADAN MIGUEL III DO Jul 30, 2016 12:47
== END 2016-07-30 13:15 | DRG 470 ==
LOC: ER 21:20 → 5 NORTH 23:26 → 4 NORTH 07-27 12:34
PROVIDERS: ADMIT Internal Medicine; ATTEND Internal Medicine
PROC: 0SRS0J9 Replacement of Left Hip Joint, Femoral Surface with Synthetic Substitute, Cemented, Open Approach (ICD-10-PCS; principal; 2016-07-27 08:00)
DX: S72.002A Fracture of unspecified part of neck of left femur, initial encounter for closed fracture (principal); S42.002A Fracture of unspecified part of left clavicle, initial encounter for closed fracture; E03.9 Hypothyroidism, unspecified; I10 Essential (primary) hypertension; Z60.2 Problems related to living alone; W01.0XXA Fall on same level from slipping, tripping and stumbling without subsequent striking against object, initial encounter; Z88.0 Allergy status to penicillin; Z88.8 Allergy status to other drugs, medicaments and biological substances; Z91.018 Allergy to other foods; Y93.89 Activity, other specified; Y92.89 Other specified places as the place of occurrence of the external cause; Y99.8 Other external cause status; M81.0 Age-related osteoporosis without current pathological fracture
CPT/HCPCS: 36415; 70450; 71010; 73030; 73502; 80048; 81001; 82306; 82947; 84484; 85014; 85018; 85027; 87086; 87641; 88305; 88311; 93005; 94250; 94640; 94760; C9113; J0171; J0690; J0780; J1100; J1650; J1815; J1885; J2270; J2370; J2405; J2704; J2795; J3010; J3260; J3370; J3490; J7120; 97110; 97530; 97535; 99285-25

== ENCOUNTER 2017-06-21 10:00 | Inpatient (IN) | payer MEDICARE ==
[2017-06-21 10:28] LABS: BILIRUBIN,URINE NEGATIVE (NEG); CLARITY,URINE CLOUDY; COLOR,URINE YELLOW; GLUCOSE,URINE NEGATIVE (NEG); NITRITE,URINE NEGATIVE (NEG); PROTEIN,URINE NEGATIVE (NEG-TRACE); UROBILINOGEN,URINE 0.2 mg/dL (0.2 mg/dL)
[2017-06-21 10:29] LABS: ADD MAN DIFF? NO
[2017-06-21 10:32] LABS: BASO # 0.1 x10^3/uL (0.0-0.2); BASO % 1 % (0-3); EOS # 0.2 x10^3/uL (0.0-0.7); EOS % 2 % (0-3); HEMATOCRIT 41.7 % (36.0-47.0); LYMPH # 2.3 x10^3/uL (1.0-4.8); LYMPH % 30 % (24-48); MEAN CORPUSCULAR HEMOGLOBIN 30 pg (25-35); MEAN CORPUSCULAR HGB CONC 34 g/dL (31-37); MEAN CORPUSCULAR VOLUME 89 fL (79-100); MONO # 1.1 x10^3/uL (0.0-1.1); MONO % 14 % (0-9); NEUT # 4.1 x10^3uL (1.8-7.7); NEUT % 53 % (31-73); PLATELET COUNT 282 x10^3/uL (140-400); RED CELL DISTRIBUTION WIDTH 15.6 % (11.5-14.5); WHITE BLOOD COUNT 7.7 x10^3/uL (4.0-11.0)
[2017-06-21 10:37] LABS: BACTERIA,URINE MANY /HPF (0-FEW); SQUAMOUS EPITHELIAL CELL,UR FEW /LPF
[2017-06-21 10:38] LABS: WBC,URINE TNTC /HPF (0-4)
[2017-06-21 10:43] LABS: ANION GAP 6 (6-14); BLOOD UREA NITROGEN 22 mg/dL (7-20); CALCIUM 8.9 mg/dL (8.5-10.1); CARBON DIOXIDE 31 mmol/L (21-32); CHLORIDE 102 mmol/L (98-107); CREATININE 0.8 mg/dL (0.6-1.0); GFR 67.7; GLUCOSE 95 mg/dL (70-99); SODIUM 139 mmol/L (136-145)
[2017-06-21] MEDS ORDERED: diphenhydrAMINE 50 MG/ML VIAL IM (10:45)
[2017-06-21] MEDS ORDERED: METOCLOPRAMIDE 10 MG TABLET. PO (10:45)
[2017-06-21] MEDS ORDERED: DEXAMETHASONE SOD PHOS 4 MG/ML VIAL IM (10:45)
[2017-06-21] MEDS ORDERED: ACETAMINOPHEN 500 MG TABLET PO ×2 (10:45→12:30)
[2017-06-21 12:21] LABS: LACTIC ACID 0.9 mmol/L (0.4-2.0)
[2017-06-21] MEDS ORDERED: ONDANSETRON PF 4 MG/2 ML VIAL. IV (12:30)
[2017-06-21] MEDS ORDERED: fentaNYL PF VIAL 100 MCG/2 ML VIAL IV (12:30)
[2017-06-21] MEDS: amLODIPine BESYLATE 5 MG TABLET PO (13:54)
[2017-06-21] MEDS: fentaNYL PF VIAL 100 MCG/2 ML VIAL IV ×3 (13:54→22:50)
[2017-06-21 14:53] LABS: LACTIC ACID 0.6 mmol/L (0.4-2.0)
[2017-06-21] MEDS ORDERED: MORPHINE SULFATE 2 MG/ML DISP.SYRIN. IV (15:45)
[2017-06-21] MEDS: LOSARTAN POTASSIUM 50 MG TABLET. PO (20:24)
[2017-06-21] MEDS: METOPROLOL SUCC 24HR ER 50 MG TAB.ER.24H. PO (20:24)
[2017-06-21] MEDS: traMADol 50 MG TABLET PO (20:25)
[2017-06-21] MEDS: MORPHINE SULFATE 4 MG/ML DISP.SYRIN. IV (22:28)
[2017-06-22] MEDS: LEVOTHYROXINE 125 MCG TABLET PO (05:56)
[2017-06-22] MEDS: amLODIPine BESYLATE 5 MG TABLET PO (08:00)
[2017-06-22 08:21] LABS: ADD MAN DIFF? NO
[2017-06-22 08:27] LABS: BASO % 0 % (0-3); EOS # 0.2 x10^3/uL (0.0-0.7); EOS % 2 % (0-3); HEMATOCRIT 39.4 % (36.0-47.0); HEMOGLOBIN 13.4 g/dL (12.0-15.5); LYMPH # 1.6 x10^3/uL (1.0-4.8); LYMPH % 23 % (24-48); MEAN CORPUSCULAR HEMOGLOBIN 30 pg (25-35); MEAN CORPUSCULAR HGB CONC 34 g/dL (31-37); MEAN CORPUSCULAR VOLUME 88 fL (79-100); MONO # 0.9 x10^3/uL (0.0-1.1); MONO % 13 % (0-9); NEUT # 4.4 x10^3uL (1.8-7.7); NEUT % 62 % (31-73); PLATELET COUNT 289 x10^3/uL (140-400); RED BLOOD COUNT 4.48 x10^6/uL (3.50-5.40); WHITE BLOOD COUNT 7.2 x10^3/uL (4.0-11.0)
[2017-06-22 08:42] LABS: ANION GAP 9 (6-14); BLOOD UREA NITROGEN 26 mg/dL (7-20); CALCIUM 8.6 mg/dL (8.5-10.1); CARBON DIOXIDE 28 mmol/L (21-32); CHLORIDE 100 mmol/L (98-107); CREATININE 0.8 mg/dL (0.6-1.0); GFR 67.7; GLUCOSE 99 mg/dL (70-99); POTASSIUM 4.1 mmol/L (3.5-5.1); SODIUM 137 mmol/L (136-145)
[2017-06-22] MEDS ORDERED: diazePAM 5 MG TABLET PO (10:15)
[2017-06-22] MEDS: MORPHINE SULFATE 4 MG/ML DISP.SYRIN. IV (10:17)
[2017-06-22] MEDS: ONDANSETRON PF 4 MG/2 ML VIAL. IV (11:25)
[2017-06-22] MEDS: traMADol 50 MG TABLET PO ×2 (11:32→21:09)
[2017-06-22 13:05] LABS: PROTHROMBIN TIME PATIENT 12.9 SEC (11.7-14.0)
[2017-06-22] MEDS: CHOLECALCIFEROL (VITAMIN D3) 5,000 UNIT CAPSULE PO (15:21)
[2017-06-22] MEDS: METOPROLOL SUCC 24HR ER 50 MG TAB.ER.24H. PO (21:09)
[2017-06-22] MEDS: LOSARTAN POTASSIUM 50 MG TABLET. PO (21:09)
[2017-06-23] MEDS: traMADol 50 MG TABLET PO ×2 (02:57→16:48)
[2017-06-23] MEDS: MORPHINE SULFATE 4 MG/ML DISP.SYRIN. IV ×2 (02:58→20:50)
[2017-06-23] MEDS: LEVOTHYROXINE 125 MCG TABLET PO (05:50)
[2017-06-23] MEDS: CHOLECALCIFEROL (VITAMIN D3) 5,000 UNIT CAPSULE PO (09:00)
[2017-06-23] MEDS: amLODIPine BESYLATE 5 MG TABLET PO (09:00)
[2017-06-23] MEDS: IV NORMAL SALINE 1000ML BAG 1,000 ML IV (12:00)
[2017-06-23] MEDS ORDERED: fentaNYL PF VIAL 100 MCG/2 ML VIAL (13:30)
[2017-06-23] MEDS ORDERED: MIDAZOLAM HCL/PF 5 MG/5 ML VIAL. (13:30)
[2017-06-23] MEDS ORDERED: LIDOCAINE WITH 8.4% SOD BICARB 3 ML DISP.SYRIN. ×2 (13:43→14:18)
[2017-06-23] MEDS: LIDOCAINE WITH 8.4% SOD BICARB 3 ML DISP.SYRIN. IJ (13:45)
[2017-06-23] MEDS ORDERED: IOHEXOL 240 MG/ML 50ML VIAL. (13:46)
[2017-06-23] MEDS: IOHEXOL 240 MG/ML 50ML VIAL. IJ (14:00)
[2017-06-23] MEDS ORDERED: CONTRAST GIVEN MC (14:00)
[2017-06-23] MEDS: VANCOMYCIN 1GM IVPB FOR OMNI 250 ML IV (14:15)
[2017-06-23] MEDS: MIDAZOLAM HCL/PF 5 MG/5 ML VIAL. IV (14:37)
[2017-06-23] MEDS: fentaNYL PF VIAL 100 MCG/2 ML VIAL IV (14:37)
[2017-06-23] MEDS: hydrALAZINE 20 MG/ML VIAL. IVP (15:59)
[2017-06-23] MEDS: ENALAPRILAT 1.25 MG/ML VIAL. IV (17:23)
[2017-06-23] MEDS: METOPROLOL SUCC 24HR ER 50 MG TAB.ER.24H. PO (22:55)
[2017-06-23] MEDS: LOSARTAN POTASSIUM 50 MG TABLET. PO (22:56)
[2017-06-24] MEDS: hydrALAZINE 20 MG/ML VIAL. IVP (03:50)
[2017-06-24 04:34] LABS: ADD MAN DIFF? NO
[2017-06-24 04:37] LABS: BASO % 0 % (0-3); EOS # 0.1 x10^3/uL (0.0-0.7); EOS % 1 % (0-3); HEMATOCRIT 42.3 % (36.0-47.0); HEMOGLOBIN 14.2 g/dL (12.0-15.5); LYMPH # 1.6 x10^3/uL (1.0-4.8); LYMPH % 20 % (24-48); MEAN CORPUSCULAR HEMOGLOBIN 30 pg (25-35); MEAN CORPUSCULAR HGB CONC 34 g/dL (31-37); MEAN CORPUSCULAR VOLUME 88 fL (79-100); MONO % 12 % (0-9); NEUT % 66 % (31-73); PLATELET COUNT 298 x10^3/uL (140-400); RED BLOOD COUNT 4.83 x10^6/uL (3.50-5.40); RED CELL DISTRIBUTION WIDTH 15.1 % (11.5-14.5); WHITE BLOOD COUNT 7.7 x10^3/uL (4.0-11.0)
[2017-06-24] MEDS: ONDANSETRON PF 4 MG/2 ML VIAL. IV (04:59)
[2017-06-24 05:04] LABS: ANION GAP 10 (6-14); BLOOD UREA NITROGEN 16 mg/dL (7-20); CALCIUM 8.8 mg/dL (8.5-10.1); CARBON DIOXIDE 25 mmol/L (21-32); CHLORIDE 99 mmol/L (98-107); CREATININE 0.9 mg/dL (0.6-1.0); GFR 59.1; GLUCOSE 92 mg/dL (70-99); POTASSIUM 3.8 mmol/L (3.5-5.1); SODIUM 134 mmol/L (136-145)
[2017-06-24] MEDS: LEVOTHYROXINE 125 MCG TABLET PO (06:18)
[2017-06-24] MEDS: amLODIPine BESYLATE 5 MG TABLET PO (08:11)
[2017-06-24] MEDS: CHOLECALCIFEROL (VITAMIN D3) 5,000 UNIT CAPSULE PO (08:11)
[2017-06-24] MEDS ORDERED: MAGNESIUM HYDROXIDE 2,400 MG/30 ML ORAL.SUSP. PO (09:45)
[2017-06-24] MEDS ORDERED: BISACODYL 10 MG SUPP.RECT. PR (09:45)
[2017-06-24] MEDS: BISACODYL 5 MG TABLET.DR. PO (10:55)
[2017-06-24] MEDS: SENNOSIDES/DOCUSATE 8.6/50MG TABLET. PO (10:55)
== END 2017-06-24 15:15 | DRG 516 ==
LOC: ER 10:00 → 6 SOUTH 12:16
PROC: 0QS03ZZ Reposition Lumbar Vertebra, Percutaneous Approach (ICD-10-PCS; principal; 2017-06-23)
PROC: 0QU03JZ Supplement Lumbar Vertebra with Synthetic Substitute, Percutaneous Approach (ICD-10-PCS; 2017-06-23)
DX: M48.56XA Collapsed vertebra, not elsewhere classified, lumbar region, initial encounter for fracture (principal); N39.0 Urinary tract infection, site not specified; E03.9 Hypothyroidism, unspecified; M47.816 Spondylosis without myelopathy or radiculopathy, lumbar region; I10 Essential (primary) hypertension; M19.90 Unspecified osteoarthritis, unspecified site; M48.061 Spinal stenosis, lumbar region without neurogenic claudication; M51.36 Other intervertebral disc degeneration, lumbar region; M51.37 Other intervertebral disc degeneration, lumbosacral region; M54.16 Radiculopathy, lumbar region; M85.80 Other specified disorders of bone density and structure, unspecified site; Z96.642 Presence of left artificial hip joint; R09.02 Hypoxemia; Z79.899 Other long term (current) drug therapy; Z88.0 Allergy status to penicillin; Z88.8 Allergy status to other drugs, medicaments and biological substances; Z91.018 Allergy to other foods
CPT/HCPCS: 22514; 36415; 72131; 72148; 72192; 80048; 81001; 82306; 83605; 85025; 85610; 87040; 87086; 97162-GP; 97164-GP; 97166-GO; 97530-GO; 97535-GO; 99152; 99153; C1758; J0360; J0690; J2250; J2270; J2405; J3010; J3370; J7030; Q9966